=== PATIENT | female | born 1940 | race Caucasian/White ===

== ENCOUNTER → 2016-11-10 | Outpatient (CLI) | payer MEDICARE, BC ==
[~2016-11-10] MED LIST: ACET-62 PO; ASPI-611 PO; ATOR40TA64 PO; CALC-946 PO; DOCU100C19 PO; FAMO20TA8 PO; FURO40TA5 PO; HYDR-4181 PO; HYDR-4246 PO; METO-279 PO; MYCO180T PO; POTA-81 PO; PRED2.5T PO; TACR1CAP PO
--- NOTE | 2016-11-10 16:50 | DI ---
Indication: ITS.REASON: R09.89 CAROTID BRUIT PROCEDURE: US CAROTID DOPP COMPLETE: TECHNIQUE: Grayscale, color and duplex Doppler imaging was performed of the carotid systems bilaterally. Velocities in cm/sec - validated velocity measurements with angiographic measurements, velocity criteria are extrapolated from diameter data as defined by the Society of Radiologists in Ultrasound Consensus Conference Radiology 2003; 229;340-346. RIGHT: PSV ICA 82.1 EDV ICA 9.38 PSV CCA 67.7 EDV CCA 4.01 PSV ECA ICA Diameter reduction 10%-30% (1.0-1.2 PSV<110)% LEFT: PSV ICA 114 EDV ICA 19.3 PSV CCA 76.3 EDV CCA 10.3 PSV ECA 103 ICA Diameter reduction of 20-40% The right vertebral artery is patent with cephalic flow. The left vertebral artery is patent with cephalic flow. Scattered atherosclerotic plaque in the carotid bulbs and proximal to mid ICAs. No focal velocity elevation. IMPRESSION: No hemodynamically significant carotid stenosis. .
== END ==
LOC: IMA 14:56
PROVIDERS: ATTEND Internal Medicine
DX: I65.23 Occlusion and stenosis of bilateral carotid arteries (principal); R09.89 Other specified symptoms and signs involving the circulatory and respiratory systems

== ENCOUNTER 2017-08-23 19:02 | Observation (INO) ==
--- OUTSIDE RECORDS SUMMARY | 2017-08-23 19:07 | External Medical Summary | Referral Summary ---
:1940 Author Organization [facility] Address [address] [place] [address] Care Team Providers Name Role Phone Freedom Tsang Primary Care Physician Encounter [facility] Date(s): 10/08/15 - 10/08/15 [facility] [address] [place] [address]- [place] Discharge Diagnosis: Acute bronchitis, unspecified Discharge Diagnosis: Cough Discharge Diagnosis: Acute exacerbation of chronic obstructive pulmonary disease (COPD) Discharge Disposition: 01-Home or Self Care Attending Physician: Freedom Tsang MD Admitting Physician: Freedom Tsang MD Vital Signs Most recent to oldest [Reference Range]: 1 Peripheral Pulse Rate [60-100 bpm] 58 bpm *LOW* (10/08/15 12:27 PM) Blood Pressure [90-140/60-90 mmHg] 116/62 mmHg (10/08/15 12:27 PM) Problem List Condition Effective Dates Status Health Status Informant Acute pain(Confirmed) Active Allergies(Confirmed) Active At risk of pressure sore(Confirmed) Active Back pain(Confirmed) Active patient CKD (chronic kidney disease), stage Active IV(Confirmed) Dermatochalasis(Confirmed) Active Excess skin of eyelid Active (finding)(Confirmed) Hay fever(Confirmed) Active Hearing loss(Confirmed) Active Hypertension(Confirmed) Active Kidney disease/stones(Confirmed)1 Active Knowledge deficit(Confirmed)2 Active Obesity(Confirmed) Active patient Osteoarthritis(Confirmed) Active 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) Polycystic kidney disease(Confirmed) Active Renal transplant recipient(Confirmed) Active Seizures(Confirmed)3 Active Sun exposure, moderate(Confirmed)4 Active 1end stage, on dialysis 3x week with left arm boegaxe1Nslffme added automatically by system based on initiation of Knowledge Deficit Plan of [id number], demerol also could be the sxzcb7l few serious sunburns Allergies, Adverse Reactions, Alerts Substance Reaction Severity Status Demerol HCl Active FLUoxetine HCl Hair loss Medium Active iodine Adverse Reaction Active lip and face burning meperidine Active penicillin Adverse Reaction Active Itching Percocet 11/3250 Active 1Itching Medications Aspirin Low Dose 81 mg, Oral, Daily, 0 Refill(s) Start Date: 04/01/15 Status: Orderedatorvastatin 40 mg oral tablet 40 mg 1 tabs, Oral, Bedtime (once a day), 0 Refill(s) Start Date: 03/12/15 Status: Orderedazithromycin 250 mg oral tablet See Instructions, TAKE 2 TABS PRIOR TO PROCEDURE AND 1 TAB 1 DAY AFTER PROCEDURE., # 3 tabs, 0 Refill(s), Pharmacy: [facility] #[id number], TAKE 2 TABS PRIOR TO PROCEDURE AND 1 TAB 1 DAY AFTER PROCEDURE. Start Date: 04/19/15 Status: Orderedbisacodyl 10 mg rectal suppository 10 mg 1 supp, Rectal, Daily, as needed for constipation, # 10 supp, 0 Refill(s) Start Date: 03/12/15 Status: OrderedcloNIDine 0.2 mg oral tablet 0.2 mg 1 tabs, Oral, TID, # 60 tabs, 0 Refill(s) Start Date: 03/12/15 Status: OrderedCombivent Respimat CFC free 20 mcg-100 mcg/inh inhalation aerosol 1 puffs, Inhalation, QID, # 4 g, 11 Refill(s), Pharmacy: [facility] # [id number] Start Date: 10/08/15 Status: Ordereddocusate sodium 100 mg, Oral, TID, as needed for constipation, 0 Refill(s) Start Date: 03/12/15 Status: Ordereddoxycycline monohydrate 100 mg oral capsule 100 mg 1 caps, Oral, BID, # 20 caps, 0 Refill(s), Pharmacy: [facility] # [id number], 1 caps Oral BID Start Date: 10/08/15 Status: OrderedDuoNeb 0.5 mg-2.5 mg/3 mL inhalation solution 3 mL, Inhalation, TID, USE WITH NEBULIZER., # 270 mL, 3 Refill(s), Pharmacy: [facility] #[id number] Start Date: 03/17/15 Status: OrderedFLUoxetine 10 mg oral tablet 10 mg 1 tabs, Oral, Daily, # 30 tabs, 0 Refill(s), Pharmacy: [facility] # [id number], 1 tabs Oral Daily Start Date: 05/21/15 Status: Orderedgabapentin 300 mg oral capsule 300 mg 1 caps, Oral, BID, # 60 caps, 0 Refill(s) Start Date: 03/12/15 Status: Orderedgabapentin 300 mg oral capsule 300 mg 1 caps, Oral, BID, # 60 caps, 3 Refill(s), Pharmacy: [facility] # [id number], 1 caps Oral BID Start Date: 09/13/15 Status: OrderedhydrALAZINE 25 mg oral tablet 25 mg 1 tabs, Oral, TID, # 90 tabs, 0 Refill(s) Start Date: 03/12/15 Status: OrderedLasix 20 mg oral tablet 40 mg 2 tabs, Oral, BID, # 30 tabs, 0 Refill(s) Start Date: 03/12/15 Status: Orderedmetolazone 2.5 mg oral tablet See Instructions, 1 po three times per week, 0 Refill(s) Start Date: 04/29/15 Status: Orderedmetoprolol succinate 100 mg oral tablet, extended release 100 mg 1 tabs, Oral, Daily, # 30 tabs, 0 Refill(s) Start Date: 03/12/15 Status: Orderedmycophenolic acid 180 mg oral delayed release tablet See Instructions, TAKE FOUR TABLETS BY MOUTH TWICE A DAY, # 120 tabs, eRx: [facility] #[id number],TAKE FOUR TABLETS BY MOUTH TWICE A DAY Start Date: 05/25/15 Status: OrderedNorco 7.5 mg-325 mg oral tablet 1 tabs, Oral, q6hr, as needed for pain, 0 Refill(s) Start Date: 03/12/15 Status: OrderedPepcid 20 mg oral tablet mg tabs, Oral, BID, 0 Refill(s) Start Date: 03/12/15 Status: OrderedpredniSONE 2.5 mg oral tablet mg tabs, Oral, Daily, 0 Refill(s) Start Date: 03/12/15 Status: OrderedpredniSONE 20 mg oral tablet 40 mg 2 tabs, Oral, Daily, # 10 tabs, 0 Refill(s), Pharmacy: [facility] # [id number], 2 tabs Oral Daily Start Date: 10/08/15 Status: OrderedSpiriva 18 mcg inhalation capsule 18 mcg 1 Each, Inhalation, Daily, use two inhalations of one capsule for each dose, # 30 Each, 3 Refill(s), Pharmacy: [facility] #[id number], 1 Each Inhalation Daily,Instr:use two inhalations of one capsule for each dose Start Date: 06/04/15 Status: Orderedtacrolimus 1 mg oral capsule See Instructions, 2 IN THE AM AND 1 PM, 0 Refill(s) Start Date: 03/12/15 Status: OrderedToprol-XL 100 mg oral tablet, extended release See Instructions, TAKE ONE TABLET BY MOUTH DAILY, # 30 tabs, 2 Refill(s), Pharmacy: [facility]#[id number] Start Date: 09/03/15 Status: OrderedVitamin D3 5000 UNITS ONE WEEKLY ON SUNDAY, 0 Refill(s) Start Date: 03/12/15 Status: Ordered Results No data available for this section Immunizations Vaccine Date Refusal Reason influenza virus vaccine, inactivated1 05/12/14 influenza virus vaccine, live 05/08/13 pneumococcal 13-valent conjugate vaccine 08/18/15 pneumococcal 13-valent conjugate vaccine 08/18/15 tetanus-diphth toxoids (Td) adult/adol 09/25/94 1Location History: See scanned document Procedures Procedure Date Related Diagnosis Body Site Fusion Spine Lumbar Lateral Posterior Interbody1 01/21/15 Kidney transplant 05/16/11 Nephrectomy2 05/16/11 Colonoscopy with diverticulosis3 10/28/09 Esophagogastroduodenoscopy with 10/28/09 biopies/polypectomies showing duodenal polyps/duodenitis4 Fistulafor dialysis5 2007 Hip Replacement R 2002 Biopsy of breast benign 1979 Salivary gland removed 1979 Adenoidectomy Carpal tunnel Carpal tunnel surgery Bilateral Hip replacement Procedure - [facility] - Total abdominal hysterectomy and bilateral salpingo-oophorectomy Tonsillectomy Tonsillectomy 1auto-populated from documented surgical [id number] kidney [id number] repeat colonoscopy in 10 years. 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 FINDINGS: Two views show mild cardiomegaly with no failure. There is flattening of the diaphragm consistent with COPD. No mass or infiltrate is seen. There is no effusion or pneumothorax. IMPRESSION: Mild cardiomegaly with no failure. COPD. The chest is similar to a prior study from 04/01/2015. Dictated on workstation:[id number] Signature Line Final Dictated by: Stef Adams MD Dictated DT/TM: 10/08/2015 1:08 pm Signed by: Stef Adams MD Signed (Electronic Signature): 10/08/2015 1:23 pm Technologist: Naa Carpenter IMAGE This document has an image [1] 1.Acute bronchitis, unspecified Certainly there is a significant effect and I am concerned she has a secondary bacterial infection. 2.Acute exacerbation of chronic obstructive pulmonary disease (COPD) I do think there significant bronchospasm in addition to themucus and infection. Cough Due to the above. When we improve theabove will improve the cough Plan: Doxycycline monohydrate 100 mg twice a day. 20. I will also have her begin czgawjkvka86 mg, 2 daily5. 10. I will also let her use Combivent Respimat inhaler, 1 puff 4 times a day regular ly until she's better. If she has other problems, she may have to come the emergency room. I will have her returnif other problems occur with her next scheduled appointment. Orders: doxycycline, 100 mg 1 caps, Oral, BID, # 20 caps, 0 Refill(s), Pharmacy: [facility] #[id number], 1 caps Oral BID ipratropium-albuterol, 1 puffs, Inhalation, QID, # 4 g, 11 Refill(s), Pharmacy: [facility] #[id number] predniSONE, 40 mg 2 tabs, Oral, Daily, # 10 tabs, 0 Refill(s), Pharmacy: [facility] #[id number], 2 tabs Oral Daily
--- OUTSIDE RECORDS SUMMARY | 2017-08-23 19:07 | External Medical Summary | Referral Summary ---
:1940 Author Organization [facility] Address [address] [place] [address] Care Team Providers Name Role Phone Freedom Tsang Primary Care Physician Encounter [facility] [id number] Date(s): 02/28/16 - 02/28/16 [facility] [address] [place] [address]- [place] Discharge Diagnosis: Abnormality of nail tissue Discharge Diagnosis: Senile purpura Discharge Diagnosis: Epidermal cyst Discharge Diagnosis: History of renal transplant Discharge Disposition: 01-Home or Self Care Attending Physician: Marquis Delacruz MD Admitting Physician: Marqusi Delacruz MD Vital Signs No data available for this section Problem List Condition Effective Dates Status Health [...] on dialysis 3x week with left arm [id number] added automatically by system based on initiation of Knowledge Deficit Plan of Yjfv6qqnuxicuzuj, demerol also could be the bzaya7v few serious sunburns Allergies, Adverse Reactions, Alerts [...] PROCEDURE., # 3 tabs, 0 Refill(s), Pharmacy: [facility] #[id number], TAKE 2 TABS PRIOR TO PROCEDURE AND 1 TAB 1 DAY AFTER PROCEDURE. Start Date: 04/19/15 Status: OrderedcloNIDine 0.5 tabs, Oral, TID, 0 Refill(s) Start Date: 02/17/16 Status: Orderedcyclobenzaprine 5 mg oral tablet 5 mg 1 tabs, Oral, Bedtime (once a day), # 30 tabs, 0 Refill(s), Pharmacy: [facility] #[id number],1 tabs Oral Bedtime (once a day) Start Date: 10/22/15 Status: Ordereddoxycycline monohydrate 100 mg oral capsule 100 mg 1 caps, Oral, BID, # 20 caps, 0 Refill(s), Pharmacy: [facility] # [id number], 1 caps Oral BID Start Date: 10/08/15 Status: Orderedgabapentin 300 mg oral capsule See Instructions, TAKE ONE CAPSULE BY MOUTH TWICE A DAY, # 60 caps, 3 Refill(s) , eRx: [facility] #[id number], TAKE ONE CAPSULE BY MOUTH TWICE A DAY Start Date: 01/17/16 Status: Orderedgabapentin 300 mg oral capsule 300 mg 1 caps, Oral, BID, # 60 caps, 3 Refill(s), Pharmacy: [facility] # [id number], 1 caps Oral BID Start Date: 09/13/15 Status: OrderedhydrALAZINE 100 mg oral tablet 100 mg 1 tabs, Oral, TID, 0 Refill(s) Start Date: 02/17/16 Status: OrderedIncruse Ellipta 62.5 mcg/inh inhalation powder See Instructions, samples lot [id number] exp 09/2016, 0 Refill(s) Start Date: 12/23/15 Status: OrderedLasix 20 mg oral tablet 40 mg 2 tabs, Oral, BID, # 30 tabs, 0 Refill(s) Start Date: 03/12/15 Status: Orderedmetoprolol succinate 100 mg oral tablet, extended release 100 mg 1 tabs, Oral, Daily, # 30 tabs, 0 Refill(s) Start Date: 03/12/15 Status: Orderedmycophenolic acid 180 mg oral delayed release tablet See Instructions, TAKE FOUR TABLETS BY MOUTH TWICE A DAY, # 120 tabs, eRx: [facility] #[id number],TAKE FOUR TABLETS BY MOUTH TWICE A DAY Start Date: 05/25/15 Status: Orderedoxybutynin 5 mg oral tablet 5 mg 1 tabs, Oral, TID, as needed for urinary discomfort, # 50 tabs, 0 Refill(s) , Pharmacy: [facility] #[id number], 1 tabs Oral TID,PRN:as needed for urinary discomfort Start Date: 02/17/16 Status: OrderedPepcid 20 mg oral tablet mg tabs, Oral, BID, 0 Refill(s) Start Date: 03/12/15 Status: OrderedpredniSONE 2.5 mg oral tablet 2.5 mg 1 tabs, Oral, Daily, # 14 tabs, 0 Refill(s) Start Date: 12/23/15 Status: Orderedtacrolimus 1 mg oral capsule See Instructions, 1 IN THE AM AND 1 PM, 0 Refill(s) Start Date: 03/12/15 Status: OrderedToprol-XL 100 mg oral tablet, extended release See Instructions, TAKE ONE TABLET BY MOUTH DAILY, # 30 tabs, 2 Refill(s), Pharmacy: [facility]#[id number] Start Date: 09/03/15 Status: OrderedVitamin D3 5000 [...] Replacement R 2002 Biopsy of breast benign 1980 Salivary gland removed 1979 Adenoidectomy Carpal tunnel Carpal tunnel surgery Bilateral Hip replacement Procedure - [facility] - Total abdominal hysterectomy and bilateral salpingo-oophorectomy Tonsillectomy Tonsillectomy 1auto-populated from documented surgical [id number] kidney acqbgbtmgt2yrul repeat colonoscopy in 10 years. [id number] anemia, oqtzeb0fnan in 2001 right in 2007 Social History Social History Type Response Smoking Status Former smoker; Type: Cigarettes; Tobacco use per day: 1 Pack; Number of years: 30; Total pack years: 301 1Quit in 2001 Assessment and Plan Extracted from: Title: Office Visit Note Author: Marquis Delacruz MD Date: 02/28/16 Assessment/Plan 1.Senile purpura Sun protection Ordered: Office Visit Level 3 Est 14837 2.Epidermal cyst Reassurance for the lesions on the left scalp and right inguinal area Ordered: Office Visit Level 3 Est 37105 3.Abnormality of nail tissue Discussed options and risks and 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 She'll continue excellent sun protection and at least yearly exams or sooner as needed for any lesions of concern Ordered: Office Visit Level 3 Est 48293
--- OUTSIDE RECORDS SUMMARY | 2017-08-23 19:08 | External Medical Summary | Referral Summary ---
:1940 [facility] Address [address] [place] [address] Care Team Providers Name Role Phone Bc Smith Primary Care Physician Encounter [facility] [id number] Date(s): 05/05/15 - 05/05/15 [facility] [place] [address] [place] [address]- [phone] Discharge Disposition: 01-Home or Self Care Attending Physician: Qasim Saxena MD Referring Physician: Qasim Saxena MD Vital Signs No data available for this section Problem List Condition Effective Dates Status Health Status Informant Acute pain(Confirmed) Active Allergies(Confirmed) Active At risk of pressure sore(Confirmed) Active Back pain(Confirmed) Active patient Dermatochalasis(Confirmed) Active Excess skin of eyelid Active (finding)(Confirmed) Hay fever(Confirmed) Active Hearing loss(Confirmed) Active Hypertension(Confirmed) Active Kidney disease/stones(Confirmed)1 Active Knowledge deficit(Confirmed)2 Active Obesity(Confirmed) Active patient Osteoarthritis(Confirmed) Active Polycystic kidney disease(Confirmed) Active Seizures(Confirmed)3 Active Sun exposure, moderate(Confirmed)4 Active 1end stage, on dialysis 3x week with left arm [id number] added automatically by system based on initiation of Knowledge Deficit Plan of Shok2ryouffsdhki, demerol also could be the qacpj3o few serious sunburns Allergies, Adverse Reactions, Alerts Substance Reaction Severity Status iodine Adverse Reaction Active lip and face [...] PROCEDURE., # 3 tabs, 0 Refill(s), Pharmacy: [facility] #[id number], TAKE 2 TABS PRIOR TO PROCEDURE AND 1 TAB 1 DAY AFTER PROCEDURE. Start Date: 04/19/15 Status: Orderedbisacodyl 10 mg rectal suppository 10 mg 1 supp, Rectal, Daily, as needed for constipation, # 10 supp, 0 Refill(s) Start Date: 03/12/15 Status: OrderedcloNIDine 0.2 mg oral tablet 0.2 mg 1 tabs, Oral, TID, # 60 tabs, 0 Refill(s) Start Date: 03/12/15 Status: Ordereddocusate sodium 100 mg, Oral, TID, as needed for constipation, 0 Refill(s) Start Date: 03/12/15 Status: OrderedDuoNeb 0.5 mg-2.5 mg/3 mL inhalation solution 3 mL, Inhalation, TID, USE WITH NEBULIZER., # 270 mL, 3 Refill(s), Pharmacy: [facility] #[id number] Start Date: 03/17/15 Status: OrderedFLUoxetine 10 mg oral tablet 10 mg 1 tabs, Oral, Daily, # 30 tabs, 0 Refill(s) Start Date: 03/12/15 Status: Orderedgabapentin 300 mg oral capsule 300 mg 1 caps, Oral, BID, # 60 caps, 0 Refill(s) Start Date: 03/12/15 Status: OrderedhydrALAZINE 25 mg oral tablet 25 mg 1 tabs, Oral, TID, # 90 tabs, 0 Refill(s) Start Date: 03/12/15 Status: OrderedLasix 20 mg oral tablet 40 mg 2 tabs, Oral, BID, # 30 tabs, 0 Refill(s) Start Date: 03/12/15 Status: Orderedmetolazone 2.5 mg oral tablet mg tabs, Oral, Daily, 0 Refill(s) Start Date: 04/29/15 Status: Orderedmetoprolol succinate 100 mg oral tablet, extended release 100 mg 1 tabs, Oral, Daily, # 30 tabs, 0 Refill(s) Start Date: 03/12/15 Status: Orderedmycophenolic acid 180 mg oral delayed release tablet See Instructions, 4 tabs mg Oral BID, # 120 tabs, 0 Refill(s), Pharmacy: [facility] #[id number], 4tabs mg Oral BID Start Date: 04/16/15 Status: OrderedNorco 7.5 mg-325 mg oral tablet 1 tabs, Oral, q6hr, as needed for pain, 0 Refill(s) Start Date: 03/12/15 Status: OrderedPepcid 20 mg oral tablet mg tabs, Oral, BID, 0 Refill(s) Start Date: 03/12/15 Status: OrderedpredniSONE 2.5 mg oral tablet mg tabs, Oral, Daily, 0 Refill(s) Start Date: 03/12/15 Status: Orderedtacrolimus 1 mg oral capsule See Instructions, 2 IN THE AM AND 1 PM, 0 Refill(s) Start Date: 03/12/15 Status: OrderedVitamin D3 5000 UNITS ONE WEEKLY ON SUNDAY, 0 Refill(s) Start Date: 03/12/15 Status: Ordered Results No data available for this section Immunizations Vaccine Date Refusal Reason influenza virus vaccine, inactivated1 05/12/14 influenza virus vaccine, live 05/08/13 tetanus-diphth toxoids (Td) adult/adol 09/25/94 1Location History: See scanned document Procedures Procedure Date Related Diagnosis Body Site Fusion Spine Lumbar Lateral Posterior Interbody1 01/21/15 Kidney transplant 05/16/11 Nephrectomy2 05/16/11 Colonoscopy with diverticulosis3 10/28/09 Esophagogastroduodenoscopy with 10/28/09 biopies/polypectomies showing duodenal polyps/duodenitis4 Fistulafor dialysis2007 Hip Replacement R 2002 Biopsy of breast benign 1979 Salivary gland removed 1979 Adenoidectomy Carpal tunnel Carpal tunnel surgery Bilateral Hip replacement Procedure - [facility] - Total abdominal hysterectomy and bilateral salpingo-oophorectomy Tonsillectomy Tonsillectomy 1auto-populated from documented surgical ozku1Dyum kidney umixvuazbj7akbz repeat colonoscopy in 10 years. [id number] anemia, zhcesx1btqm in 2001 right in 2007 Social History Social History Type Response Smoking Status Former smoker; Type: Cigarettes; Tobacco use per day: 1 Pack; Number of years: 30; Total pack years: 301 1Quit in 2001 Assessment and Plan No data available for this section
--- OUTSIDE RECORDS SUMMARY | 2017-08-23 19:08 | External Medical Summary | Referral Summary ---
:1940 Author Organization [facility] Address [address] [place] [address] Care Team Providers Name Role Phone Freedom Tsang Primary Care Physician Encounter [facility] Date(s): 02/17/16 - 02/17/16 [facility] [address] [place] [address]- [place] Discharge Diagnosis: Autosomal dominant polycystic kidney disease Discharge Diagnosis: Renal transplant recipient Discharge Diagnosis: Hypertension Discharge Diagnosis: Chronic GERD Discharge Diagnosis: Urinary urgency Discharge Diagnosis: Hypercholesteremia Discharge Disposition: 01-Home or Self Care Attending Physician: Freedom Tsang MD Admitting Physician: Freedom Tsang MD Vital Signs Most recent to oldest [Reference Range]: 1 Peripheral Pulse Rate [60-100 bpm] 60 bpm (02/17/16 11:11 AM) Blood Pressure [90-140/60-90 mmHg] 162/58 mmHg *HI* (02/17/16 11:11 AM) Problem List Condition Effective Dates Status Health [...] on dialysis 3x week with left arm [id number] added automatically by system based on initiation of Knowledge Deficit Plan of Poye1bcytahmioru, demerol also could be the yrgbj8g few serious sunburns Allergies, Adverse Reactions, Alerts [...] # 3 tabs, 0 Refill(s), Pharmacy: [facility] #[id number], TAKE 2 TABS PRIOR TO PROCEDURE AND 1 TAB 1 DAY AFTER PROCEDURE. Start Date: 04/19/15 Status: OrderedcloNIDine 0.5 tabs, Oral, TID, 0 Refill(s) Start Date: 02/17/16 Status: Orderedcyclobenzaprine 5 mg oral tablet 5 mg 1 tabs, Oral, Bedtime (once a day), # 30 tabs, 0 Refill(s), Pharmacy: [facility] #[id number],1 tabs Oral Bedtime (once a day) Start Date: 10/22/15 Status: Ordereddoxycycline monohydrate 100 mg oral capsule 100 mg 1 caps, Oral, BID, # 20 caps, 0 Refill(s), Pharmacy: [facility] # [id number], 1 caps Oral BID Start Date: 10/08/15 Status: Orderedgabapentin 300 mg oral capsule See Instructions, TAKE ONE CAPSULE BY MOUTH TWICE A DAY, # 60 caps, 3 Refill(s) , eRx: [facility] #[id number], TAKE ONE CAPSULE BY MOUTH TWICE A DAY Start Date: 01/17/16 Status: Orderedgabapentin 300 mg oral capsule 300 mg 1 caps, Oral, BID, # 60 caps, 3 Refill(s), Pharmacy: [facility] # [id number], 1 caps Oral BID Start Date: 09/13/15 Status: OrderedhydrALAZINE 100 mg oral tablet 100 mg 1 tabs, Oral, TID, 0 Refill(s) Start Date: 02/17/16 Status: OrderedIncruse Ellipta 62.5 mcg/inh inhalation powder See Instructions, samples lot [id number] exp 09/2016, 0 Refill(s) Start Date: 12/23/15 [...] A DAY, # 120 tabs, eRx: [facility] #[id number],TAKE FOUR TABLETS BY MOUTH TWICE A DAY Start Date: 05/25/15 Status: Orderedoxybutynin 5 mg oral tablet 5 mg 1 tabs, Oral, TID, as needed for urinary discomfort, # 50 tabs, 0 Refill(s) , Pharmacy: [facility] #[id number], 1 tabs Oral TID,PRN:as needed for urinary [...] # 30 tabs, 2 Refill(s), Pharmacy: [facility]#[id number] Start Date: 09/03/15 Status: OrderedVitamin D3 5000 [...] salpingo-oophorectomy Tonsillectomy Tonsillectomy 1auto-populated from documented surgical [id number] kidney rewnzfkxxo7ewuy repeat colonoscopy in 10 years. [id number] anemia, cqdxmy9nscq in 2001 right in 2007 Social History Social History Type Response Smoking Status Former smoker; Type: Cigarettes; Tobacco use per day: 1 Pack; Number of years: 30; Total pack years: 301 1Quit in 2001 Assessment and Plan Extracted from: Title: Six-month [id number] Author: Freedom Tsang MD Date: 02/17/16 Assessment/Plan 1.Urinary urgency Perhaps more symptomatic. I think she could try Ditropan but I would probably try theimmediate release unlessshe has too many side effects. 2.Chronic GERD She does need more treatment. I think she could certainly increase her Pepcid 3.Autosomal dominant polycystic kidney disease History of such and not seem to cause serious problems. 4.Renal transplant recipient Being followed closely by nephrology. Continue she is doing. 5.Hypertension A little higher at the moment. I do want her to continue to follow at home and I'm not going to change any medication at this time. 6.Hypercholesteremia Chronicand being treated. No other change in therapy. Plan: I will add Ditropanor oxybutynin 5 mg3 times a day when necessary urinary incontinence. 50 of those and see how things go. I discussed he could have some dry mouthand possibly some lightheadedness. Also increase Pepcidto twice a day. Continue all of her other medications. No other testing at this time. I will have her return to see me in 6 months with comprehensive exam. Continue romana cox with her other consultants. If she has other problems, get back with me. Orders: oxybutynin, 5 mg 1 tabs, Oral, TID, as needed for urinary discomfort , # 50 tabs, 0 Refill(s), Pharmacy: [facility] #[id number], 1 tabs Oral TID, PRN:as needed for urinary discomfort Extracted from: Title: Ambulatory Patient Education Author: Freedom Tsang MD Date: 02/16 Family Medicine Food Choices for Gastroesophageal Reflux Disease, Adult When you have gastroesophageal reflux disease (GERD), the foods you eat and your eating habits are very important. Choosing the right foods can help ease your discomfort. WHAT GUIDELINES DO I NEED TO FOLLOW? Choose fruits, vegetables, whole grains, and low-fat dairy products. Choose low-fat meat, fish, and poultry. Limit fats such as oils, salad dressings, butter, nuts, and avocado. Keep a food diary. This helps you identify foods that cause symptoms. Avoid foods that cause symptoms. These may be different for everyone. Eat small meals often instead of 3 large meals a day. Eat your meals slowly, in a place where you are relaxed. Limit fried foods. Cook foods using methods other than frying. Avoid drinking alcohol. Avoid drinking large amounts of liquids with your meals. Avoid bending over or lying down until 23 hours after eating. WHAT FOODS ARE NOT RECOMMENDED? These are some foods and drinks that may make your symptoms worse: Vegetables Tomatoes. Tomato juice. Tomato and spaghetti sauce. [place] peppers. Onion and garlic. Horseradish. Fruits Oranges, grapefruit, and lemon (fruit and juice). Meats High-fat meats, fish, and poultry. This includes hot dogs, ribs, ham, sausage, salami, and pope. Dairy Whole milk and chocolate milk. Sour cream. Cream. Butter. Ice cream. Cream cheese. Drinks Coffee and tea. Bubbly (carbonated) drinks or energy drinks. Condiments Hot sauce. Barbecue sauce. Sweets/Desserts Chocolate and cocoa. Donuts. Peppermint and spearmint. Fats and Oils High-fat foods. This includes [place] fries and potato chips. Other Vinegar. Strong spices. This includes black pepper, white pepper, red pepper, cayenne, villar powder, cloves, vanessa, and chili powder. The items listed above may not be a complete list of foods and drinks to avoid. Contact your dietitian for more information. This information is not intended to replace advice given to you by your health care provider. Make sure you discuss any questions you have with your health care provider. Document Released: 01/14/2013 Document Revised: 08/06/2015 Document Reviewed: 05/20/2014 ExitCare Patient Information 2016 [facility], [facility]. No follow up information was provided.
--- OUTSIDE RECORDS SUMMARY | 2017-08-23 19:08 | External Medical Summary | Referral Summary ---
:1940 Author Organization [facility] Address [address] [place] [address] Care Team Providers Name Role Phone Freedom Tsang Primary Care Physician Encounter [facility] [id number] Date(s): 02/22/15 - 02/22/15 [facility] [address] [place] [address]- [place] Discharge Diagnosis: Wart Discharge Diagnosis: Milia Discharge Diagnosis: Neurogenic pain Discharge Diagnosis: History of renal transplant Discharge Disposition: 01-Home or Self Care Attending Physician: Marquis Delacruz MD Admitting Physician: Marquis Delacruz MD Vital Signs No data available [...] patient Osteoarthritis(Confirmed) Active Polycystic kidney disease(Confirmed) Active 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) Renal transplant recipient(Confirmed) Active Seizures(Confirmed)3 Active Sun exposure, moderate(Confirmed)4 Active 1end stage, on dialysis 3x week with left arm [id number] added automatically by system based on initiation of Knowledge Deficit Plan of Jism3soctnpnftuf, demerol also could be the xfyxp8u few serious sunburns Allergies, Adverse Reactions, Alerts [...] PROCEDURE., # 3 tabs, 0 Refill(s), Pharmacy: [facility] #[id number], TAKE 2 TABS PRIOR TO PROCEDURE AND [...] NEBULIZER., # 270 mL, 3 Refill(s), Pharmacy: [facility] #[id number] Start Date: 03/17/15 Status: OrderedFLUoxetine 10 mg oral tablet 10 mg 1 tabs, Oral, Daily, # 30 tabs, 0 Refill(s), Pharmacy: [facility] # [id number], 1 tabs Oral Daily Start Date: 05/21/15 [...] TWICE A DAY, # 120 tabs, eRx: [facility] #[id number],TAKE FOUR TABLETS BY MOUTH TWICE A DAY Start Date: 05/25/15 Status: OrderedNorco 7.5 mg-325 mg oral tablet 1 tabs, Oral, q6hr, as needed for pain, 0 Refill(s) Start Date: 03/12/15 Status: OrderedPepcid 20 mg oral tablet mg tabs, Oral, BID, 0 Refill(s) Start Date: 03/12/15 Status: OrderedpredniSONE 2.5 mg oral tablet mg tabs, Oral, Daily, 0 Refill(s) Start Date: 03/12/15 Status: OrderedSpiriva 18 mcg inhalation capsule 18 mcg 1 Each, Inhalation, Daily, use two inhalations of one capsule for each dose, # 30 Each, 3 Refill(s), Pharmacy: [facility] #[id number], 1 Each Inhalation Daily,Instr:use two inhalations of one capsule for each dose Start Date: 06/04/15 Status: Orderedtacrolimus 1 mg oral capsule See Instructions, 2 IN THE AM AND 1 PM, 0 Refill(s) Start Date: 03/12/15 Status: OrderedToprol-XL 100 mg oral tablet, extended release See Instructions, TAKE ONE TABLET BY MOUTH DAILY, # 30 tabs, 2 Refill(s), Pharmacy: [facility]#[id number] Start Date: 09/03/15 Status: OrderedVitamin D3 5000 [...] Procedures Procedure Date Related Diagnosis Body Site Destruction (eg, laser surgery, electrosurgery, 02/22/15 cryosurgery, chemosurgery, surgical curettement), of benign lesions other than skin tags or cutaneous vascular proliferative lesions; up to 14 lesions.. Fusion Spine Lumbar Lateral Posterior Interbody1 01/21/15 [...] salpingo-oophorectomy Tonsillectomy Tonsillectomy 1auto-populated from documented surgical nghx3Tdnw kidney picuknjzxb1kutg repeat colonoscopy in 10 years. [id number] anemia, gzbtum0rryw in 2001 right in 2007 Social History Social History Type Response Smoking Status Former smoker; Type: Cigarettes; Tobacco use per day: 1 Pack; Number of years: 30; Total pack years: 301 1Quit in 2001 Assessment and Plan Extracted from: Title: Ambulatory Patient Education Author: Marquis Delacruz MD Date: 02/22/15 Family Medicine Epidermal Cyst An epidermal cyst is sometimes called a sebaceous cyst, epidermal inclusion cyst, or infundibular cyst. These cysts usually contain a substance that looks "pasty" or "cheesy" and may have a bad smell. T his substance is a protein called keratin. Epidermal cysts are usually found on the face, neck, or trunk. They may also occur in the vaginal area or other parts of the genitalia of both men and women. E pidermal cysts are usually small, painless, slow-growing bumps or lumps that move freely under the skin. It is important not to try to pop them. This may cause an infection and lead to tenderness and swelling. CAUSES Epidermal cysts may be caused by a deep penetrating injury to the skin or a plugged hair follicle, often associated with acne. SYMPTOMS Epidermal cysts can become inflamed and cause: Redness. Tenderness. Increased temperature of the skin over the bumps or lumps. Grayish-white, bad smelling material that drains from the bump or lump. DIAGNOSIS Epidermal cysts are easily diagnosed by your caregiver during an exam. Rarely, a tissue sample (biopsy) may be taken to rule out other conditions that may resemble epidermal cysts. TREATMENT Epidermal cysts often get better and disappear on their own. They are rarely ever cancerous. If a cyst becomes infected, it may become inflamed and tender. This may require opening and draining the cyst. Treatment with antibiotics may be necessary. When the infection is gone, the cyst may be removed with minor surgery. Small, inflamed cysts can often be treated with antibiotics or by injecting steroid medicines. Sometimes, epidermal cysts become large and bothersome. If this happens, surgical removal in your caregiver's office may be necessary. HOME CARE INSTRUCTIONS Only take athl-edr-oexqqxz or prescription medicines as directed by your caregiver. Take your antibiotics as directed. Finish them even if you start to feel better. SEEK MEDICAL CARE IF: Your cyst becomes tender, red, or swollen. Your condition is not improving or is getting worse. You have any other questions or concerns. MAKE SURE YOU: Understand these instructions. Will watch your condition. Will get help right away if you are not doing well or get worse. Document Released: 06/16/2005 Document Revised: 10/07/2012 Document Reviewed: 01/22/2012 ExitCare Patient Information 2015 [employer]. This information is not intended to replace advice given to you by your health care provider. Make sure you discuss any questions you have with your health care provider. No follow up information was provided. Extracted from: Title: Office Visit Note Author: Marquis Delacruz MD Date: 02/22/15 Assessment/Plan 1.Wart I froze the wart with liquid nitrogen for 7 seconds Ordered: Destruction, Of Flat Warts, Molluscum Contagiosum, Or Milia; Up To 14 Lesions 77555 Office Visit Level 2 New 29353 2.Milia Reassurance Ordered: Office Visit Level 2 New 47028 3.Neurogenic pain We discussed neurogenic pain and slow healing time for nerves and various medications that are sometimes used to address this. Ordered: Office Visit Level 2 New 49168 4.History of renal transplant She declined skin exam today but she uses good sun protection and will return when it is time for her next yearly exam or sooner for any sites of concern Ordered: Office Visit Level 2 New 65895
--- OUTSIDE RECORDS SUMMARY | 2017-08-23 19:08 | External Medical Summary | Referral Summary ---
:1940 Author Organization [facility] Address [address] [place] [address] Care Team Providers Name Role Phone Freedom Tsang Primary Care Physician Encounter [facility] Date(s): 04/29/15 - 04/29/15 [facility] [address] [place] [address]- [place] Discharge Diagnosis: Chronic CHF Discharge Diagnosis: Dyspnea on exertion Discharge Diagnosis: Lymphedema Discharge Diagnosis: Pulmonary hypertension Discharge Diagnosis: Chronic obstructive lung disease Discharge Diagnosis: Chronic venous insufficiency Discharge Disposition: -Home or Self Care Attending Physician: Qasim Saxena MD Admitting Physician: Qasim Saxena MD Vital Signs Most recent to oldest [Reference Range]: 1 Peripheral Pulse Rate [60-100 bpm] 66 bpm (04/29/15 12:52 PM) Respiratory Rate [14-20 br/min] 18 br/min (04/29/15 12:52 PM) Blood Pressure [90-140/60-90 mmHg] 158/62 mmHg *HI* (04/29/15 12:52 PM) SpO2 95 % (04/29/15 12:52 PM) Problem List Condition Effective Dates Status [...] on dialysis 3x week with left arm [id number] added automatically by system based on initiation of Knowledge Deficit Plan of Tmit9spttsnogrwr, demerol also could be the rkyfd0j few serious sunburns Allergies, Adverse Reactions, Alerts [...] PROCEDURE., # 3 tabs, 0 Refill(s), Pharmacy: [facility] #[id number], TAKE 2 TABS PRIOR TO PROCEDURE AND [...] QID, # 4 g, 11 Refill(s), Pharmacy: [facility] # [id number] Start Date: 10/08/15 Status: Orderedcyclobenzaprine 5 mg oral tablet 5 mg 1 tabs, Oral, Bedtime (once a day), # 30 tabs, 0 Refill(s), Pharmacy: [facility] #[id number],1 tabs Oral Bedtime (once a day) Start Date: 10/22/15 Status: Ordereddocusate sodium 100 mg, Oral, TID, as needed for constipation, 0 Refill(s) Start Date: 03/12/15 Status: Ordereddoxycycline monohydrate 100 mg oral capsule 100 mg 1 caps, Oral, BID, # 20 caps, 0 Refill(s), Pharmacy: [facility] # [id number], 1 caps Oral BID Start Date: 10/08/15 Status: OrderedDuoNeb 0.5 mg-2.5 mg/3 mL inhalation solution 3 mL, Inhalation, TID, USE WITH NEBULIZER., # 270 mL, 3 Refill(s), Pharmacy: [facility] #[id number] Start Date: 03/17/15 Status: OrderedFLUoxetine 10 mg oral tablet 10 mg 1 tabs, Oral, Daily, # 30 tabs, 0 Refill(s), Pharmacy: [facility] # [id number], 1 tabs Oral Daily Start Date: 05/21/15 Status: Orderedgabapentin 300 mg oral capsule 300 mg 1 caps, Oral, BID, # 60 caps, 0 Refill(s) Start Date: 03/12/15 Status: Orderedgabapentin 300 mg oral capsule 300 mg 1 caps, Oral, BID, # 60 caps, 3 Refill(s), Pharmacy: [facility] # [id number], 1 caps Oral BID Start Date: 09/13/15 [...] TWICE A DAY, # 120 tabs, eRx: [facility] #[id number],TAKE FOUR TABLETS BY MOUTH TWICE A DAY [...] Daily, # 10 tabs, 0 Refill(s), Pharmacy: [facility] # [id number], 2 tabs Oral Daily Start Date: 10/08/15 Status: OrderedSpiriva 18 mcg inhalation capsule 18 mcg 1 Each, Inhalation, Daily, use two inhalations of one capsule for each dose, # 30 Each, 3 Refill(s), Pharmacy: [facility] #[id number], 1 Each Inhalation Daily,Instr:use two inhalations of one capsule for each dose Start Date: 06/04/15 Status: Orderedtacrolimus 1 mg oral capsule See Instructions, 2 IN THE AM AND 1 PM, 0 Refill(s) Start Date: 03/12/15 Status: OrderedToprol-XL 100 mg oral tablet, extended release See Instructions, TAKE ONE TABLET BY MOUTH DAILY, # 30 tabs, 2 Refill(s), Pharmacy: [facility]#[id number] Start Date: 09/03/15 Status: OrderedVitamin D3 5000 [...] salpingo-oophorectomy Tonsillectomy Tonsillectomy 1auto-populated from documented surgical qkuc0Cmqg kidney wtxacjxttj3jxpy repeat colonoscopy in 10 years. [id number] anemia, vjdwtl7fnix in 2001 right in 2007 Social History Social History Type Response Smoking Status Former smoker; Type: Cigarettes; Tobacco use per day: 1 Pack; Number of years: 30; Total pack years: 301 1Quit in 2001 Assessment and Plan Extracted from: Title: Office Visit Note Author: Qasim Saxena MD Date: 04/29/15 Assessment/Plan Chronic CHF Not adequately controlled, she continues to be symptomatic with orthopnea, PND and dyspnea on exetion. She is sp renal transplan with CKD, on diuretics, recently titrated up. She has gai christina 6 pounds since last visit. She has venous reflux in her lower extremities some of which could be attributed to fluid overload. I performed point of care thoracic ultrasound today. She has bilateral simple effusions left greater than right, she had prominent B lines suggestive of fluid overload. She had metolazone added to her regimen. I would recommend increasing her lasix to 80mg bid for atleast two weeks in addition to metolazone. Will defer titration to her renal team. Chronic obstructive lung disease I switched her to spiriva handihaler as she did notlike the respimat, I however feel that her predominant problems is fluid overload. Chronic venous insufficiency Discussed with the family the causes of CVI, and that in her would focus first on diuresing her. Dyspnea on exertion Due to above Lymphedema Due to above, she is scheduled to get unna boot wrap in two weeks time, currently with elastic compression stockings. Will send her prescription for higher pressure stockings Pulmonary hypertension Secodnary to a combination of renal failure and left heart failure, diurese for now. No suggestion of thromboembolic disease, no symptoms of sleep apnea. Will obtain overnight oximetry. I have reviewed laboratory results I have reviewed the patientsradiology and imaging results I have reviewed old records I have reviewed the literature I have discussed the plan of care with the patient
--- OUTSIDE RECORDS SUMMARY | 2017-08-23 19:08 | External Medical Summary | Referral Summary ---
:1940 Author Organization [facility] Address [address] [place] [address] Care Team Providers Name Role Phone Freedom Tsang Primary Care Physician Encounter VC Date(s): 06/08/16 - 06/08/16 [facility] [address] [place] [address]- Discharge Diagnosis: Renal transplant recipient Discharge Diagnosis: Hypertension Discharge Diagnosis: Acute CHF Discharge Disposition: -Home or Self Care Attending Physician: Freedom Tsang MD Admitting Physician: Freedom Tsang MD Vital Signs Most recent to oldest [Reference Range]: 1 Peripheral Pulse Rate [60-100 bpm] 68 bpm (06/08/16 12:04 PM) Respiratory Rate [14-20 br/min] 17 br/min (06/08/16 12:04 PM) Blood Pressure [90-140/60-90 mmHg] 190/58 mmHg *HI* (06/08/16 12:04 PM) Problem List Condition Effective Dates Status [...] on dialysis 3x week with left arm azpiluu3Hmejcec added automatically by system based on initiation of Knowledge Deficit Plan of Fwcz9hrualfbdhrf, demerol also could be the gzrfg5v few serious sunburns Allergies, Adverse Reactions, Alerts [...] PROCEDURE., # 3 tabs, 0 Refill(s), Pharmacy: [facility] #[id number], TAKE 2 TABS PRIOR TO PROCEDURE AND 1 TAB 1 DAY AFTER PROCEDURE. Start Date: 04/19/15 Status: OrderedhydrALAZINE 100 mg oral tablet 100 mg 1 tabs, Oral, TID, 0 Refill(s) Start Date: 02/17/16 Status: OrderedLasix 20 mg oral tablet 40 [...] TWICE A DAY, # 120 tabs, eRx: [facility] #[id number],TAKE FOUR TABLETS BY MOUTH TWICE A DAY Start Date: 05/25/15 Status: Orderedoxybutynin 5 mg oral tablet 5 mg 1 tabs, Oral, TID, as needed for urinary discomfort, # 50 tabs, 0 Refill(s) , Pharmacy: [facility] #[id number], 1 tabs Oral TID,PRN:as needed for urinary discomfort Start Date: 02/17/16 Status: OrderedPenlac Nail Lacquer 8% topical solution 1 alicia, Topical, Daily, # 6.6 mL, 5 Refill(s), Pharmacy: [facility] #[id number] Start Date: 03/02/16 Status: OrderedPepcid 20 mg oral tablet 20 mg 1 tabs, Oral, BID, # 60 tabs, 5 Refill(s), Pharmacy: [facility] # [id number], 1 tabs Oral BID Start Date: 03/16/16 Status: OrderedpredniSONE 2.5 mg oral tablet 2.5 mg 1 tabs, Oral, Daily, # 14 tabs, 0 Refill(s) Start Date: 12/23/15 Status: Orderedtacrolimus 1 mg oral capsule See Instructions, 1 IN THE AM AND 1 PM, 0 Refill(s) Start Date: 03/12/15 Status: OrderedVitamin D3 5000 UNITS ONE WEEKLY ON SUNDAY, 0 Refill(s) Start Date: 03/12/15 Status: Ordered Results Coagulation Most recent to oldest [Reference Range]: 1 D-Dimer [0-500 ng{FEU}/mL] 896 ng{FEU}/mL *HI* (06/08/16 1:10 PM) Chemistry Most recent to oldest [Reference Range]: 1 BNP [0-99 pg/mL] 501 pg/mL *HI* (06/08/16 12:45 PM) Sodium Venous [136-144 mmol/L] 139 mmol/L (06/08/16 12:45 PM) Potassium Venous [3.6-5.1 mmol/L] 4.3 mmol/L 1 (06/08/16 12:45 PM) Calcium Ionized Venous [1.19-1.41 mmol/L] 1.22 mmol/L (06/08/16 12:45 PM) Total CO2 Venous [25-29 mmol/L] 29 mmol/L (06/08/16 12:45 PM) Glucose Venous [70-100 mg/dL] 122 mg/dL *HI* (06/08/16 12:45 PM) BUN Venous [4-20] 34 *HI* (06/08/16 12:45 PM) Creatinine Venous [0.4-1.0 mg/dL] 1.2 mg/dL *HI* (06/08/16 12:45 PM) Venous CL [99-109 mmol/L] 99 mmol/L (06/08/16 12:45 PM) 1Result Comment: This test was performed on a whole blood specimen. The presence or absence of hemolysis cannot be assessed. Hemolysis can falsely elevate potassium levels. Normals are for venous specimens only. Immunizations Vaccine Date Refusal Reason influenza virus [...] salpingo-oophorectomy Tonsillectomy Tonsillectomy 1auto-populated from documented surgical iwzi1Zenz kidney aelysgcbsv7mzcy repeat colonoscopy in 10 years. [id number] anemia, mttdwk3lgsi in 2001 right in 2007 Social History Social History Type Response Smoking Status Former smoker; Type: Cigarettes; Tobacco use per day: 1 Pack; Number of years: 30; Total pack years: 301 1Quit in 2001 Assessment and Plan Extracted from: Title: Ambulatory Patient Education Author: Freedom Tsang MD Date: 05/14 Nephrology Chronic Kidney Disease Chronic kidney disease occurs when the kidneys are damaged over a long period. The kidneys are two organs that lie on either side of the spine between the middle of the back and the front of the abdomen. The kidneys: Remove wastes and extra water from the blood. Produce important hormones. These help keep bones strong, regulate blood pressure, and help create red blood cells. Balance the fluids and chemicals in the blood and tissues. A small amount of kidney damage may not cause problems, but a large amount of damage may make it difficult or impossible for the kidneys to work the way they should. If steps are not taken to slow down the kidney damage or stop it from getting worse, the kidneys may stop working permanently. Most of the time, chronic kidney disease does not go away. However , it can often be controlled, and those with the disease can usually live normal lives. CAUSES The most common causes of chronic kidney disease are diabetes and high blood pressure (hypertension). Chronic kidney disease may also be caused by: Diseases that cause the kidneys' filters to become inflamed. Diseases that affect the immune system. Genetic diseases. Medicines that damage the kidneys, such as anti-inflammatory medicines. Poisoning or exposure to toxic substances. A reoccurring kidney or urinary infection. A problem with urine flow. This may be caused by: Cancer. Kidney stones. An enlarged prostate in males. SIGNS AND SYMPTOMS Because the kidney damage in chronic kidney disease occurs slowly, symptoms develop slowly and may not be obvious until the kidney damage becomes severe. A person may have a kidney disease for years without showing any symptoms. Symptoms can include: Swelling (edema) of the legs, ankles, or feet. Tiredness (lethargy). Nausea or vomiting. Confusion. Problems with urination, such as: Decreased urine production. Frequent urination, especially at night. Frequent accidents in children who are potty trained. Muscle twitches and cramps. Shortness of breath. Weakness. Persistent itchiness. Loss of appetite. Metallic taste in the mouth. Trouble sleeping. Slowed development in children. Short stature in children. DIAGNOSIS Chronic kidney disease may be detected and diagnosed by tests, including blood , urine, imaging, or kidney biopsy tests. TREATMENT Most chronic kidney diseases cannot be cured. Treatment usually involves relieving symptoms and preventing or slowing the progression of the disease. Treatment may include: A special diet. You may need to avoid alcohol and foods thatare salty and high in potassium. Medicines. These may: Lower blood pressure. Relieve anemia. Relieve swelling. Protect the bones. HOME CARE INSTRUCTIONS Follow your prescribed diet. Your health care provider may instruct you to limit daily salt (sodium) and protein intake. Take medicines only as directed by your health care provider. Do not take any new medicines (prescription, jvqx-isz-fwuxdgv, or nutritional supplements) unless approved by your health care provid er. Many medicines can worsen your kidney damage or need to have the dose adjusted. Quit smoking if you smoke. Talk to your health care provider about a smoking cessation program. Keep all follow-up visits as directed by your health care provider. Monitor your blood pressure. Start or continue an exercise plan. Get immunizations as directed by your health care provider. Take vitamin and mineral supplements as directed by your health care provider. SEEK IMMEDIATE MEDICAL CARE IF: Your symptoms get worse or you develop new symptoms. You develop symptoms of end-stage kidney disease. These include: Headaches. Abnormally dark or light skin. Numbness in the hands or feet. Easy bruising. Frequent hiccups. Menstruation stops. You have a fever. You have decreased urine production. You havepain or bleeding when urinating. MAKE SURE YOU: Understand these instructions. Will watch your condition. Will get help right away if you are not doing well or get worse. FOR MORE INFORMATION [employer] [employer]: www.aakp.org National Kidney Foundation: www.kidney.org [employer]: www.akfinc.org [employer] [facility]: www.lifeoptions.org and www.kidneyschool.org This information is not intended to replace advice given to you by your health care provider. Make sure you discuss any questions you have with your health care provider. Document Released: 04/24/2009 Document Revised: 08/06/2015 Document Reviewed: 03/14/2013 [employer] Patient Education 2016 [employer] No follow up information was provided. Extracted from: Title: CHF 14803 Author: Freedom Tsang MD Date: 06/08/16 Assessment/Plan 1.Acute CHF I can't explain this exactly, but I am concerned there could be ischemia. She will need further evaluation. Fortunately, this does not appear to beacute pulmonary emboli as cause of her discomfort. 2.Chest pain I can't completely explain this. No PE seems evident. Perhaps it is ischemic in nature. Ordered: CTA Chest 3.Hypertension Chronicand could exacerbate some of her problems. 4.Renal transplant recipient This seems to be holding stable. 5.CKD (chronic kidney disease), stage III Also seems to be stable. Plan: I will have her continue with furosemide 60 mg twice a day for now. I will see her in a couple weeks. I will also need to arrange for 2-D echocardiogram and cardiology evaluation. She may needn oninvasiveischemia testing. Continue her other medications as she is doing now. I did send a message to herregarding this.
--- OUTSIDE RECORDS SUMMARY | 2017-08-23 19:08 | External Medical Summary | Referral Summary ---
:1940 Author Organization [facility] Address [address] [place] [address] Care Team Providers Name Role Phone Bc Smith Primary Care Physician Encounter Date(s): 04/29/15 - 04/29/15 [facility] [address] [place] [address]- [place] Discharge Disposition: 01-Home or Self Care Attending [...] on dialysis 3x week with left arm zuiehnr3Azggndm added automatically by system based on initiation of Knowledge Deficit Plan of Utxc3mwchswsbpbd, demerol also could be the ehvys9j few serious sunburns Allergies, Adverse Reactions, Alerts [...] PROCEDURE., # 3 tabs, 0 Refill(s), Pharmacy: [facility] #[id number], TAKE 2 TABS PRIOR TO PROCEDURE AND [...] NEBULIZER., # 270 mL, 3 Refill(s), Pharmacy: [facility] #[id number] Start Date: 03/17/15 Status: OrderedFLUoxetine 10 mg [...] BID, # 120 tabs, 0 Refill(s), Pharmacy: [facility] #[id number], 4tabs mg Oral BID Start Date: 04/16/15 [...] salpingo-oophorectomy Tonsillectomy Tonsillectomy 1auto-populated from documented surgical zcvm6Dkmj kidney ztlottcglj5mfmv repeat colonoscopy in 10 years. [id number] anemia, isvhmc8ghax in 2001 right in 2007 Social History Social History Type Response Smoking Status Former smoker; Type: Cigarettes; Tobacco use per day: 1 Pack; Number of years: 30; Total pack years: 301 1Quit in 2001 Assessment and Plan No data available for this section
--- OUTSIDE RECORDS SUMMARY | 2017-08-23 19:08 | External Medical Summary | Referral Summary ---
:1940 Author Organization [facility] Address [address] [place] [address] Care Team Providers Name Role Phone Bc Smith Primary Care Physician Encounter Date(s): 01/21/15 - 01/25/15 [facility] [address] [place] [address] Final: OTHER KYPHOSCOLIOSIS AND SCOLIOSIS Final: TOXIC ENCEPHALOPATHY Final: KIDNEY REPLACED BY TRANSPLANT Final: Other forms of epilepsy and recurrent seizures, without mention of intractable epilepsy Final: Spinal Stenosis of Lumbar Region without Neurogenic Claudication Final: DEGENERATION OF LUMBAR OR LUMBOSACRAL INTERVERTEBRAL DISC Final: UNSPECIFIED ESSENTIAL HYPERTENSION Final: ESOPHAGEAL REFLUX Final: OTHER AND UNSPECIFIED HYPERLIPIDEMIA Discharge Disposition: 01-Home or Self Care Attending Physician: Cody Esteves MD Admitting Physician: Cody Esteves MD Vital Signs Most recent to oldest [Reference Range]: 1 Temperature Oral [35.8-37.3 degC] 36.7 degC (01/25/15 12:00 PM) Temperature Skin [36-37 degC] 36.3 degC (01/21/15 12:47 PM) Temperature Temporal Artery [36.3-37.8 degC] 37.1 degC (01/22/15 11:38 PM) Peripheral Pulse Rate [60-100 bpm] 68 bpm (01/25/15 12:00 PM) Heart Rate Monitored [60-100 bpm] 84 bpm (01/21/15 6:30 PM) Respiratory Rate [14-20 br/min] 16 br/min (01/25/15 12:00 PM) Blood Pressure [90-140/60-90 mmHg] 153/58 mmHg *HI* (01/25/15 12:00 PM) Mean Arterial Pressure, Cuff 97 mmHg (01/21/15 6:30 PM) Blood Pressure Invasive [90-140/60-90 mmHg] 167/44 mmHg *HI* (01/21/15 1:45 PM) Mean Arterial Pressure, Invasive 82 mmHg (01/21/15 1:45 PM) SpO2 98 % (01/25/15 12:00 PM) Problem List Condition Effective Dates Status [...] on dialysis 3x week with left arm uadpuhn0Fzrvctf added automatically by system based on initiation of Knowledge Deficit Plan of Zbxt7mxxwgyoechl, demerol also could be the dcnnk4q few serious sunburns Allergies, Adverse Reactions, Alerts [...] Pharmacy: [facility] #[id number], TAKE 2 TABS PRIOR TO PROCEDURE AND [...] NEBULIZER., # 270 mL, 3 Refill(s), Pharmacy: [facility] #[id number] Start Date: 03/17/15 Status: OrderedFLUoxetine 10 mg oral tablet 10 mg 1 tabs, Oral, Daily, # 30 tabs, 0 Refill(s), Pharmacy: [facility] # [id number], 1 tabs Oral Daily Start Date: 05/21/15 [...] eRx: [facility] #[id number],TAKE FOUR TABLETS BY MOUTH TWICE A DAY [...] dose, # 30 Each, 3 Refill(s), Pharmacy: [facility] #[id number], 1 Each Inhalation Daily,Instr:use two inhalations of one capsule for each dose Start Date: 06/04/15 Status: Orderedtacrolimus 1 mg oral capsule See Instructions, 2 IN THE AM AND 1 PM, 0 Refill(s) Start Date: 03/12/15 Status: OrderedVitamin D3 5000 UNITS ONE WEEKLY ON SUNDAY, 0 Refill(s) Start Date: 03/12/15 Status: Ordered Results Hematology Most recent to oldest [Reference Range]: 1 WBC [4.8-10.8 10*3/uL] 11.4 10*3/uL *HI* (01/25/15 5:52 AM) RBC [4.00-5.20 10*6/uL] 3.49 10*6/uL *LOW* (01/25/15 5:52 AM) Hgb [12.0-16.0 gm/dL] 10.0 gm/dL *LOW* (01/25/15 5:52 AM) Hct [37.0-47.0 %] 30.9 % *LOW* (01/25/15 5:52 AM) MCV [82.0-99.0 fL] 88.5 fL (01/25/15 5:52 AM) MCH [27.0-32.0 pg] 28.7 pg (01/25/15 5:52 AM) MCHC [32.0-36.0 gm/dL] 32.4 gm/dL (01/25/15 5:52 AM) RDW [11.5-14.5 %] 12.8 % (01/25/15 5:52 AM) Platelet [150-400 10*3/uL] 178 10*3/uL (01/25/15 5:52 AM) MPV [9.4-12.4 fL] 11.1 fL (01/25/15 5:52 AM) Immature Granulocytes [0.0-1.0 %] 0.4 % (01/23/15 7:25 AM) Neutrophils [51-75 %] 95 % *HI* (01/24/15 7:09 AM) Lymphocytes [20-46 %] 3 % *LOW* (01/24/15: AM) Monocytes [4-11 %] 2 % *LOW* (01/24/15:09 AM) Eosinophils [0-4 %] 0 % (01/24/15: AM) Basophils [0-2 %] 0 % (01/24/15: AM) Neutro Absolute [1.90-7.00 10*3] 11.88 10*3 *HI* (01/24/15: AM) Lymph Absolute [0.80-3.30 10*3] 0.38 10*3 *LOW* (01/24/15: AM) Cache Absolute [0.30-1.00 10*3] 0.25 10*3 *LOW* (01/24/15: AM) Eos Absolute [0.00-0.50 10*3] 0.03 10*3 (01/24/15:09 AM) Baso Absolute [0.00-0.20 10*3] 0.02 10*3 (01/24/15:09 AM) Nucleated RBC Automated [0 /100 WBC] 0.0 /100 WBC (01/24/15:09 AM) Differential Reviewed (01/24/15: AM) Chemistry Most recent to oldest [Reference Range]: 1 Sodium Lvl [136-144 mEq/L] 138 mEq/L (01/24/15:09 AM) Potassium Lvl [3.6-5.1 mEq/L] 3.9 mEq/L (01/24/15:09 AM) Chloride [99-109 mEq/L] 105 mEq/L (01/24/15 7:09 AM) CO2 [22-32 mEq/L] 26 mEq/L (01/24/15:09 AM) AGAP [3-20] 7 (01/24/15 7:09 AM) BUN [4-20 mg/dL] 22 mg/dL *HI* (01/24/15 7:09 AM) Glucose Lvl [70-100 mg/dL] 137 mg/dL *HI* (01/24/15 7:09 AM) Creatinine Lvl [0.44-1.03 mg/dL] 0.76 mg/dL (01/24/15 7:09 AM) eGFR [>60] >60 1 (01/24/15 7:09 AM) Calcium Lvl [8.6-10.0 mg/dL] 9.1 mg/dL (01/24/15 7:09 AM) Blood Glucose, Capillary [70-100 mg/dL] 119 mg/dL *HI* (01/25/15 11:47 AM) 1Result Comment: Multiply eGFR results by 1.21 for race. Immunizations Vaccine Date Refusal Reason influenza virus [...] salpingo-oophorectomy Tonsillectomy Tonsillectomy 1auto-populated from documented surgical fmjy7Dzpe kidney jfnylqpjva4ixwy repeat colonoscopy in 10 years. [id number] anemia, lnexyp3qgun in 2001 right in 2007 Social History Social History Type Response Smoking Status Former smoker; Type: Cigarettes; Tobacco use per day: 1 Pack; Number of years: 30; Total pack years: 301 1Quit in 2001 Assessment and Plan No data available for this section
--- OUTSIDE RECORDS SUMMARY | 2017-08-23 19:08 | External Medical Summary | Referral Summary ---
:1940 Author Organization [facility] Address [address] [place] [address] Care Team Providers Name Role Phone Freedom Tsang Primary Care Physician Encounter VC Date(s): 06/26/16 - 06/26/16 [facility] [address] [place] [address]- [place] Discharge Diagnosis: Chest pain Discharge Diagnosis: CKD (chronic kidney disease), stage III Discharge Diagnosis: COPD, moderate Discharge Diagnosis: Autosomal dominant polycystic kidney disease Discharge Diagnosis: Hypertension Discharge Disposition: 01-Home or Self Care Attending Physician: Freedom Tsang MD Admitting Physician: Freedom Tsang MD Vital Signs Most recent to oldest [Reference Range]: 1 Peripheral Pulse Rate [60-100 bpm] 63 bpm (06/26/16 11:23 AM) Blood Pressure [90-140/60-90 mmHg] 161/68 mmHg *HI* (06/26/16 11:23 AM) Problem List Condition Effective Dates Status [...] on dialysis 3x week with left arm [id number] added automatically by system based on initiation of Knowledge Deficit Plan of Wjfr4sltijyxvvvy, demerol also could be the jxtzm5l few serious sunburns Allergies, Adverse Reactions, Alerts [...] PROCEDURE., # 3 tabs, 0 Refill(s), Pharmacy: [facility] #[id number], TAKE 2 TABS PRIOR TO PROCEDURE AND 1 TAB 1 DAY AFTER PROCEDURE. Start Date: 04/19/15 Status: OrderedCombivent Respimat CFC free 20 mcg-100 mcg/inh inhalation aerosol 1 puffs, Inhalation, QID, # 4 g, 11 Refill(s), Pharmacy: [facility] # [id number] Start Date: 06/26/16 Status: OrderedhydrALAZINE 100 mg oral tablet 100 [...] TWICE A DAY, # 120 tabs, eRx: [facility] #[id number],TAKE FOUR TABLETS BY MOUTH TWICE A DAY Start Date: 05/25/15 Status: Orderedoxybutynin 5 mg oral tablet 5 mg 1 tabs, Oral, TID, as needed for urinary discomfort, # 50 tabs, 0 Refill(s) , Pharmacy: [facility] #[id number], 1 tabs Oral TID,PRN:as needed for urinary discomfort Start Date: 02/17/16 Status: OrderedPenlac Nail Lacquer 8% topical solution 1 alicia, Topical, Daily, # 6.6 mL, 5 Refill(s), Pharmacy: [facility] #[id number] Start Date: 03/02/16 Status: OrderedPepcid 20 mg oral tablet 20 mg 1 tabs, Oral, BID, # 60 tabs, 5 Refill(s), Pharmacy: [facility] # [id number], 1 tabs Oral BID Start Date: 03/16/16 [...] salpingo-oophorectomy Tonsillectomy Tonsillectomy 1auto-populated from documented surgical vctw5Xqcu kidney pvkcpfyitb9cjsa repeat colonoscopy in 10 years. [id number] anemia, yvxpcd5pdep in 2001 right in 2007 Social History Social History Type Response Smoking Status Former smoker; Type: Cigarettes; Tobacco use per day: 1 Pack; Number of years: 30; Total pack years: 301 1Quit in 2001 Assessment and Plan Extracted from: Title: Chest pain [id number] Author: Freedom Tsang MD Date: 06/26/16 Assessment/Plan i did review her most recent chest x-ray,V/Q lung scan. These were all only slightly abnormal. 1.Chest pain I think this may be musculoskeletal.I don't see gross CHF. certainly ischemia is a consideration. However, I doubt IN. 2.COPD, moderate this may be a significant issue as it's not being treated at the moment. however, her exam is fairly good. 3.Autosomal dominant polycystic kidney disease being followed by nephrology. 4.Hypertension this may not be adequately controlled. She may need moremedication. 5.CKD (chronic kidney disease), stage III associated with the above. plan: continue with her same medications including her dose of furosemide. I will have her see John for cardiology and pulm. I will see her back in 2 more weeks to see how she is doing. I will also have her start Combivent Respimat 1 puff qid regularly.
--- OUTSIDE RECORDS SUMMARY | 2017-08-23 19:08 | External Medical Summary | Referral Summary ---
:1940 Author Organization [facility] Address [address] [place] [address] Care Team Providers Name Role Phone Freedom Tsang Primary Care Physician Encounter VC Date(s): 04/01/15 - 04/01/15 [facility] [address] [place] [address]- [place] Discharge Diagnosis: Chronic obstructive lung disease Discharge Diagnosis: Shortness of breath Discharge Diagnosis: Lymph edema Discharge Diagnosis: Abnormal PFT Discharge Diagnosis: Chronic CHF Discharge Disposition: 01-Home or Self Care Attending Physician: Qasim Saxena MD Admitting Physician: Qasim Saxena MD Referring Physician: Sybil Reyes MD Vital Signs Most recent to oldest [Reference Range]: 1 Peripheral Pulse Rate [60-100 bpm] 72 bpm (04/01/15 1:00 PM) Respiratory Rate [14-20 br/min] 16 br/min (04/01/15 1:00 PM) Blood Pressure [90-140/60-90 mmHg] 158/60 mmHg *HI* (04/01/15 1:00 PM) SpO2 95 % (04/01/15 1:00 PM) Problem List Condition Effective Dates Status [...] on dialysis 3x week with left arm [id number] added automatically by system based on initiation of Knowledge Deficit Plan of [id number], demerol also could be the qnsla9v few serious sunburns Allergies, Adverse Reactions, Alerts [...] PROCEDURE., # 3 tabs, 0 Refill(s), Pharmacy: [facility] #[id number], TAKE 2 TABS PRIOR TO PROCEDURE AND [...] QID, # 4 g, 11 Refill(s), Pharmacy: [facility] # [id number] Start Date: 10/08/15 Status: Ordereddocusate sodium 100 mg, Oral, TID, as needed for constipation, 0 Refill(s) Start Date: 03/12/15 Status: Ordereddoxycycline monohydrate 100 mg oral capsule 100 mg 1 caps, Oral, BID, # 20 caps, 0 Refill(s), Pharmacy: [facility] # [id number], 1 caps Oral BID Start Date: 10/08/15 Status: OrderedDuoNeb 0.5 mg-2.5 mg/3 mL inhalation solution 3 mL, Inhalation, TID, USE WITH NEBULIZER., # 270 mL, 3 Refill(s), Pharmacy: [facility] #[id number] Start Date: 03/17/15 Status: OrderedFLUoxetine 10 mg oral tablet 10 mg 1 tabs, Oral, Daily, # 30 tabs, 0 Refill(s), Pharmacy: [facility] # [id number], 1 tabs Oral Daily Start Date: 05/21/15 Status: Orderedgabapentin 300 mg oral capsule 300 mg 1 caps, Oral, BID, # 60 caps, 0 Refill(s) Start Date: 03/12/15 Status: Orderedgabapentin 300 mg oral capsule 300 mg 1 caps, Oral, BID, # 60 caps, 3 Refill(s), Pharmacy: [facility] # [id number], 1 caps Oral BID Start Date: 09/13/15 [...] TWICE A DAY, # 120 tabs, eRx: [facility] #[id number],TAKE FOUR TABLETS BY MOUTH TWICE A DAY [...] Daily, # 10 tabs, 0 Refill(s), Pharmacy: [facility] # [id number], 2 tabs Oral Daily Start Date: 10/08/15 Status: OrderedSpiriva 18 mcg inhalation capsule 18 mcg 1 Each, Inhalation, Daily, use two inhalations of one capsule for each dose, # 30 Each, 3 Refill(s), Pharmacy: [facility] #[id number], 1 Each Inhalation Daily,Instr:use two inhalations of one capsule for each dose Start Date: 06/04/15 Status: Orderedtacrolimus 1 mg oral capsule See Instructions, 2 IN THE AM AND 1 PM, 0 Refill(s) Start Date: 03/12/15 Status: OrderedToprol-XL 100 mg oral tablet, extended release See Instructions, TAKE ONE TABLET BY MOUTH DAILY, # 30 tabs, 2 Refill(s), Pharmacy: [facility]#[id number] Start Date: 09/03/15 Status: OrderedVitamin D3 5000 [...] tunnel surgery Bilateral Hip replacement Procedure - [facility] - Total abdominal hysterectomy and bilateral salpingo-oophorectomy Tonsillectomy Tonsillectomy 1auto-populated from documented surgical [id number] kidney awajcndyav2jkza repeat colonoscopy in 10 years. [id number] anemia, sonunv6axja in 2001 right in 2007 Social History Social History Type Response Smoking Status Former smoker; Type: Cigarettes; Tobacco use per day: 1 Pack; Number of years: 30; Total pack years: 301 1Quit in 2001 Assessment and Plan Extracted from: Title: Ambulatory Patient Education Author: Qasim Saxena MD Date: Allergy Edema Edema is an abnormal buildup of fluids in your bodytissues. Edema is somewhatdependent on gravity to pull the fluid to the lowest place in your body. That makes the condition more common in the legs and thighs (lower extremities). Painless swelling of the feet and ankles is common and becomes more likely as you get older. It is also common in looser tissues, like around your eyes. When the affected area is squeezed, the fluid may move out of that spot and leave a dent for a few moments. This dent is called pitting. CAUSES There are many possible causes of edema. Eating too much salt and being on your feet or sitting for a long time can cause edema in your legs and ankles. Hot weather may make edema worse. Common medical causes of edema include: Heart failure. Liver disease. Kidney disease. Weak blood vessels in your legs. Cancer. An injury. . Some medications. Obesity. SYMPTOMS Edema is usually painless.Your skin may look swollen or shiny. DIAGNOSIS Your health care provider may be able to diagnose edema by asking about your medical history and doing a physical exam. You may need to have tests such as X- rays, an electrocardiogram, or blood tests to check for medical conditions that may cause edema. TREATMENT Edema treatment depends on the cause. If you have heart, liver, or kidney disease, you need the treatment appropriate for these conditions. General treatment may include: Elevation of the affected body part above the level of your heart. Compression of the affected body part. Pressure from elastic bandages or support stockings squeezes the tissues and forces fluid back into the blood vessels. This keeps fluid from entering the tissues. Restriction of fluid and salt intake. Use of a water pill (diuretic). These medications are appropriate only for some types of edema. They pull fluid out of your body and make you urinate more often. This gets rid of fluid and reduces swelling, but diuretics can have side effects. Only use diuretics as directed by your health care provider. HOME CARE INSTRUCTIONS Keep the affected body part above the level of your heart when you are lying down. Do not sit still or stand for prolonged periods. Do not put anything directly under your knees when lying down. Do not wear constricting clothing or garters on your upper legs. Exercise your legs to work the fluid back into your blood vessels. This may help the swelling go down. Wear elastic bandages or support stockings to reduce ankle swelling as directed by your health care provider. Eat a low-salt diet to reduce fluid if your health care provider recommends it. Only take medicines as directed by your health care provider. SEEK MEDICAL CARE IF: Your edema is not responding to treatment. You have heart, liver, or kidney disease and notice symptoms of edema. You have edema in your legs that does not improve after elevating them. You have sudden and unexplained weight gain. SEEK IMMEDIATE MEDICAL CARE IF: You develop shortness of breath or chest pain. You cannot breathe when you lie down. You develop pain, redness, or warmth in the swollen areas. You have heart, liver, or kidney disease and suddenly get edema. You have a fever and your symptoms suddenly get worse. MAKE SURE YOU: Understand these instructions. Will watch your condition. Will get help right away if you are not doing well or get worse. Document Released: 07/16/2006 Document Revised: 07/21/2014 Document Reviewed: 05/08/2014 [facility] Patient Information 2015 [facility]. This information is not intended to replace advice given to you by your health care provider. Make sure you discuss any questions you have with your health care provider. No follow up information was provided. Extracted from: Title: Office Visit Note Author: Qasim Saxena MD Date: 04/02/15 Assessment/Plan 1.Lymph edema She has chronic lower extremity edema thathas become worse over the last 6 months, today in the office her legs were weeping. Differential for marked lower extremity edema inclu de liver disease, right or left heart failure, post thrombotic syndrome, CKD withvolume overloadand venous insufficiency among others. She has had bilaterallower extremity Doppler U/sto evaluate for DVT and these have been negative. She is not on meds that are associated with lower extremity edema, she has a history of heart failure and has been on diuretics for this. She has moderate to sever e COPD and with pulmonary hypertension on echo that could contribute to lower extremity edema. I discussed with her the options for therapy including increasing diuretic dose. Sheis s/prenal transplant and has been told she had been dehydrated before. Will differ further diuresis to her janice gloria transplant doctor.I think she could benefit from more diuresis. She would like to get a specific answer to explain her lower extremity edema. I will obtain lower extremity u/s with venous insufficiency protocol toevaluate for venous insufficiency. In additionI will refer her to wound care for a Unna boot wrap. 2.Chronic obstructive lung disease PFT's is consistent with moderate to severe COPD with marked air trapping. She has an occasional non productivecough and has no wheezing. She will benefit from long acting bronchodilator without steroids- will start on Spiriva. 3.Chronic CHF She has signs of pulmonary congestion on CXR and her lymphedema seems to have worsened. She is currently on 40mg of lasix bid. 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 Abnormal PFT As above Shortness of breath secondary to COPD and heart failure. Treatment as above Venous insufficiency Orders: US LE Venous Duplex Bilateral I have reviewed laboratory results I have reviewed the patientsradiology and imaging results I have reviewed old records I have reviewed the literature I have discussed the plan of care with the patient
--- OUTSIDE RECORDS SUMMARY | 2017-08-23 19:09 | External Medical Summary | Referral Summary ---
:1940 Author Organization [facility] [place] [address] Care Team Providers Name Role Phone Freedom Tsang Primary Care Physician Encounter VC Date(s): 03/12/15 - 03/12/15 [facility] [place] [address]- [place] Discharge Diagnosis: Uncontrolled hypertension Discharge Diagnosis: Chronic kidney disease (CKD) Discharge Diagnosis: Polypharmacy Discharge Diagnosis: Elevated d-dimer Discharge Diagnosis: Confusion Discharge Diagnosis: Dyspnea Discharge Disposition: 01-Home or Self Care Attending Physician: Sybil Reyes MD Admitting Physician: Sybil Reyes MD Vital Signs Most recent to oldest [Reference Range]: 1 Temperature Tympanic [36.6-38.1 degC] 37.3 degC (03/12/15 8:08 AM) Peripheral Pulse Rate [60-100 bpm] 63 bpm (03/12/15 8:08 AM) Blood Pressure [90-140/60-90 mmHg] 148/52 mmHg *HI* (03/12/15 8:08 AM) Problem List Condition Effective Dates Status [...] on dialysis 3x week with left arm [id number] added automatically by system based on initiation of Knowledge Deficit Plan of Cbss4kfknzstcswd, demerol also could be the ostda6w few serious sunburns Allergies, Adverse Reactions, Alerts [...] PROCEDURE., # 3 tabs, 0 Refill(s), Pharmacy: [facility] #[id number], TAKE 2 TABS PRIOR TO PROCEDURE AND [...] NEBULIZER., # 270 mL, 3 Refill(s), Pharmacy: [facility] #[id number] Start Date: 03/17/15 Status: OrderedFLUoxetine 10 mg oral tablet 10 mg 1 tabs, Oral, Daily, # 30 tabs, 0 Refill(s), Pharmacy: [facility] # [id number], 1 tabs Oral Daily Start Date: 05/21/15 Status: Orderedgabapentin 300 mg oral capsule 300 mg 1 caps, Oral, BID, # 60 caps, 0 Refill(s) Start Date: 03/12/15 Status: Orderedgabapentin 300 mg oral capsule 300 mg 1 caps, Oral, BID, # 60 caps, 3 Refill(s), Pharmacy: [facility] # [id number], 1 caps Oral BID Start Date: 09/13/15 [...] TWICE A DAY, # 120 tabs, eRx: [facility] #[id number],TAKE FOUR TABLETS BY MOUTH TWICE A DAY [...] dose, # 30 Each, 3 Refill(s), Pharmacy: [facility] #[id number], 1 Each Inhalation Daily,Instr:use two inhalations of one capsule for each dose Start Date: 06/04/15 Status: Orderedtacrolimus 1 mg oral capsule See Instructions, 2 IN THE AM AND 1 PM, 0 Refill(s) Start Date: 03/12/15 Status: OrderedToprol-XL 100 mg oral tablet, extended release See Instructions, TAKE ONE TABLET BY MOUTH DAILY, # 30 tabs, 2 Refill(s), Pharmacy: [facility]#[id number] Start Date: 09/03/15 Status: OrderedVitamin D3 5000 UNITS ONE WEEKLY ON SUNDAY, 0 Refill(s) Start Date: 03/12/15 Status: Ordered Results Coagulation Most recent to oldest [Reference Range]: 1 D-Dimer [0-590 ng{FEU}/mL] 3060 ng{FEU}/mL *HI* (03/12/15 9:25 AM) Chemistry Most recent to oldest [Reference Range]: 1 BNP [0-99 pg/mL] 590 pg/mL *HI* (03/12/15 9:25 AM) Immunizations Vaccine Date Refusal Reason influenza virus [...] salpingo-oophorectomy Tonsillectomy Tonsillectomy 1auto-populated from documented surgical nmlo0Imye kidney gzlwlptoak3pdns repeat colonoscopy in 10 years. [id number] anemia, dqyvhg1tjma in 2001 right in 2007 Social History Social History Type Response Smoking Status Former smoker; Type: Cigarettes; Tobacco use per day: 1 Pack; Number of years: 30; Total pack years: 301 1Quit in 2001 Assessment and Plan Extracted from: Title: Ambulatory Patient Education Author: Sybil Reyes MD Date: 03/12/15 Family Medicine Polypharmacy Problems Polypharmacy problems can occur when you take more than one medicine. Your caregivers need to know about all the medicines you take. This includes vitamins , herbs, eyedrops, fluz-utj-tadchdr medicines, prescription medicines, and creams. Drug interaction problems can include: Bad reactions or side effects. This can occur when certain drugs are taken together. Reduced benefit from your medicines. This can occur if one drug reduces the ability of another drug to work. Some drug interaction problems can be life-threatening. Your caregivers can coordinate a plan to help you avoid polypharmacy problems. RISK FACTORS Polypharmacy problems are more likely to occur if: You have many caregivers prescribing different medicines for you. This is a common problem for elderly patients. You have a long-term (chronic) medical condition. You have had an organ transplant. You have human immunodeficiency virus (HIV). You are undergoing chemotherapy. You have hepatitis. You have kidney disease or kidney failure. You have significant heart disease or lung disease. You are elderly. You are taking medicines that have a low margin of error. This means there is little difference between the right amount of medicine and too much medicine. Medicines in this category include: Warfarin. Digoxin. Stallings. Theophylline. Monoamine oxidase (MAO) inhibitors. Seizure medicines. Cyclosporine. PREVENTION Choose one caregiver to be in charge of coordinating your medicines. Inform this caregiver about all medicines and supplements you take, even if they are prescribed by another caregiver. Purchase all your medicines through the same pharmacy. The pharmacy keeps track of your medicines and possible drug interactions. They can notify your caregiver of potential problems. Read the information given to you at your pharmacy. Carry a list of all your medicines and their doses with you. This informs your caregivers, emergency department caregivers, and specialists about the medicines you are taking. This is especially important before you start a new medicine. Use a system to keep track of which medicines you are taking and when. Many patients use a pillbox that separates medicines by the day and time they are supposed to be taken. Carry a list of your chronic medical problems with you. Conditions such as kidney problems, liver problems, organ transplants, and chronic viral infections affect the way your body handles medicines. Ask your caregiver or pharmacist if you have any questions about your medicines. SEEK MEDICAL CARE IF: You have any problems that may be caused by your medicines. You have chest pain. You have shortness of breath. You have an irregular heartbeat. You have fainting spells. You have shaking or tremors. You have weakness or tiredness (lethargy). You have a rash or swelling in any part of the body. You have increased bleeding, rectal bleeding, vaginal bleeding, or you bruise easily. You have abdominal pain. You have nausea. You have vomiting. Document Released: 08/23/2005 Document Revised: 10/07/2012 Document Reviewed: 04/03/2012 [facility] Patient Information 2015 [facility]. This information is not intended to replace advice given to you by your health care provider. Make sure you discuss any questions you have with your health care provider. No follow up information was provided. Extracted from: Title: Office Visit Note Author: Sybil Reyes MD Date: 03/12/15 Assessment/Plan Chronic kidney disease (CKD) Confusion Dyspnea Do the PFT Elevated d-dimer VQ was OK Polypharmacy follow up with Dr. Lopez and Dr. Graves Uncontrolled hypertension take the hydralazine as ordered by Dr. Lopez. Follow up with Dr. Graves
--- OUTSIDE RECORDS SUMMARY | 2017-08-23 19:09 | External Medical Summary | Referral Summary ---
:1940 Author Organization Via [facility] Address [address] [place] [address] Care Team Providers Name Role Phone Freedom Tsang Primary Care Physician Encounter VC Date(s): 10/29/15 - 10/29/15 [facility] [address] [place] [address]- [phone] Discharge Diagnosis: Nocturnal hypoxia Discharge Disposition: 01-Home or Self Care Attending Physician: Brooke Lebron MD Admitting Physician: Brooke Lebron MD Referring Physician: Brooke Lebron MD Vital Signs Most recent to oldest [Reference Range]: 1 Blood Pressure [90-140/60-90 mmHg] 112/50 mmHg (10/29/15 9:32 AM) Problem List Condition Effective Dates Status [...] on dialysis 3x week with left arm [id number] added automatically by system based on initiation of Knowledge Deficit Plan of Qrjq3ufyhqhkxnei, demerol also could be the gfvbh9y few serious sunburns Allergies, Adverse Reactions, Alerts [...] 0 Refill(s), Pharmacy: [facility] #[id number], TAKE 2 TABS PRIOR TO PROCEDURE AND [...] QID, # 4 g, 11 Refill(s), Pharmacy: [facility] # [id number] Start Date: 10/08/15 Status: Orderedcyclobenzaprine 5 mg oral tablet 5 mg 1 tabs, Oral, Bedtime (once a day), # 30 tabs, 0 Refill(s), Pharmacy: [facility] #[id number],1 tabs Oral Bedtime (once a day) Start Date: 10/22/15 Status: Ordereddocusate sodium 100 mg, Oral, TID, as needed for constipation, 0 Refill(s) Start Date: 03/12/15 Status: Ordereddoxycycline monohydrate 100 mg oral capsule 100 mg 1 caps, Oral, BID, # 20 caps, 0 Refill(s), Pharmacy: [facility] # [id number], 1 caps Oral BID Start Date: 10/08/15 Status: OrderedDuoNeb 0.5 mg-2.5 mg/3 mL inhalation solution 3 mL, Inhalation, TID, USE WITH NEBULIZER., # 270 mL, 3 Refill(s), Pharmacy: [facility] #[id number] Start Date: 03/17/15 Status: OrderedFLUoxetine 10 mg oral tablet 10 mg 1 tabs, Oral, Daily, # 30 tabs, 0 Refill(s), Pharmacy: [facility] # [id number], 1 tabs Oral Daily Start Date: 05/21/15 Status: Orderedgabapentin 300 mg oral capsule 300 mg 1 caps, Oral, BID, # 60 caps, 0 Refill(s) Start Date: 03/12/15 Status: Orderedgabapentin 300 mg oral capsule 300 mg 1 caps, Oral, BID, # 60 caps, 3 Refill(s), Pharmacy: [facility] # [id number], 1 caps Oral BID Start Date: 09/13/15 [...] TWICE A DAY, # 120 tabs, eRx: [facility] #[id number],TAKE FOUR TABLETS BY MOUTH TWICE A DAY [...] Daily, # 10 tabs, 0 Refill(s), Pharmacy: [facility] # [id number], 2 tabs Oral Daily Start Date: 10/08/15 Status: OrderedSpiriva 18 mcg inhalation capsule 18 mcg 1 Each, Inhalation, Daily, use two inhalations of one capsule for each dose, # 30 Each, 3 Refill(s), Pharmacy: [facility] #[id number], 1 Each Inhalation Daily,Instr:use two inhalations of one capsule for each dose Start Date: 06/04/15 Status: Orderedtacrolimus 1 mg oral capsule See Instructions, 2 IN THE AM AND 1 PM, 0 Refill(s) Start Date: 03/12/15 Status: OrderedToprol-XL 100 mg oral tablet, extended release See Instructions, TAKE ONE TABLET BY MOUTH DAILY, # 30 tabs, 2 Refill(s), Pharmacy: [facility]#[id number] Start Date: 09/03/15 Status: OrderedVitamin D3 5000 [...] tunnel surgery Bilateral Hip replacement Procedure - [facility] - Total abdominal hysterectomy and bilateral salpingo-oophorectomy Tonsillectomy Tonsillectomy 1auto-populated from documented surgical qmsy9Mslw kidney xnhurdpqwl9wzui repeat colonoscopy in 10 years. [id number] anemia, nodhpo1pkst in 2001 right in 2007 Social History Social History Type Response Smoking Status Former smoker; Type: Cigarettes; Tobacco use per day: 1 Pack; Number of years: 30; Total pack years: 301 1Quit in 2001 Assessment and Plan No data available for this section
--- OUTSIDE RECORDS SUMMARY | 2017-08-23 19:09 | External Medical Summary | Referral Summary ---
:1940 Author Organization Via [facility] Address [address] [place] [address] Care Team Providers Name Role Phone Freedom Tsang Primary Care Physician Encounter VC Date(s): 06/08/16 - 06/08/16 [facility] [address] [place] [address] Discharge Disposition: 01-Home or Self Care Attending Physician: Freedom Tsang MD Vital Signs No data available for [...] on dialysis 3x week with left arm [id number] added automatically by system based on initiation of Knowledge Deficit Plan of Rjsr5bvggymlkdov, demerol also could be the nyilw5w few serious sunburns Allergies, Adverse Reactions, Alerts [...] Refill(s), Pharmacy: [facility] #[id number], TAKE 2 TABS PRIOR TO PROCEDURE AND [...] tabs, eRx: [facility] #[id number],TAKE FOUR TABLETS BY MOUTH TWICE A DAY Start Date: 05/25/15 Status: Orderedoxybutynin 5 mg oral tablet 5 mg 1 tabs, Oral, TID, as needed for urinary discomfort, # 50 tabs, 0 Refill(s) , Pharmacy: [facility] #[id number], 1 tabs Oral TID,PRN:as needed for urinary discomfort Start Date: 02/17/16 Status: OrderedPenlac Nail Lacquer 8% topical solution 1 alicia, Topical, Daily, # 6.6 mL, 5 Refill(s), Pharmacy: [facility] #[id number] Start Date: 03/02/16 Status: OrderedPepcid 20 mg oral tablet 20 mg 1 tabs, Oral, BID, # 60 tabs, 5 Refill(s), Pharmacy: [facility] # [id number], 1 tabs Oral BID Start Date: 03/16/16 [...] salpingo-oophorectomy Tonsillectomy Tonsillectomy 1auto-populated from documented surgical jpkz4Asco kidney zjmyaopisu7ndsd repeat colonoscopy in 10 years. [id number] anemia, ijiosh4fkbe in 2001 right in 2007 Social History Social History Type Response Smoking Status Former smoker; Type: Cigarettes; Tobacco use per day: 1 Pack; Number of years: 30; Total pack years: 301 1Quit in 2001 Assessment and Plan No data available for this section
--- OUTSIDE RECORDS SUMMARY | 2017-08-23 19:09 | External Medical Summary | Referral Summary ---
:1940 Author Organization [facility] Address [address] [place] [address] Care Team Providers Name Role Phone Freedom Tsang Primary Care Physician Encounter VC Date(s): 08/18/15 - 08/18/15 [facility] [address] [place] [address] us Discharge Diagnosis: Renal transplant recipient Discharge Diagnosis: Hypertension Discharge Diagnosis: CKD (chronic kidney disease), stage IV Discharge Diagnosis: Autosomal dominant polycystic kidney disease Discharge Diagnosis: Lumbago Discharge Diagnosis: Chronic obstructive pulmonary disease, unspecified Discharge Diagnosis: Other retention of urine Discharge Disposition: 01-Home or Self Care Attending Physician: Freedom Tsang MD Admitting Physician: Freedom Tsang MD Vital Signs Most recent to oldest [Reference Range]: 1 Peripheral Pulse Rate [60-100 bpm] 62 bpm (08/18/15 10:55 AM) Blood Pressure [90-140/60-90 mmHg] 148/52 mmHg *HI* (08/18/15 10:55 AM) Problem List Condition Effective Dates Status [...] on dialysis 3x week with left arm [id number] added automatically by system based on initiation of Knowledge Deficit Plan of Cuke5bnhbkttadwk, demerol also could be the tsvkf1m few serious sunburns Allergies, Adverse Reactions, Alerts Substance Reaction Severity Status FLUoxetine HCl Hair loss Medium Active iodine [...] PROCEDURE., # 3 tabs, 0 Refill(s), Pharmacy: [facility] #[id number], TAKE 2 TABS PRIOR TO PROCEDURE AND [...] NEBULIZER., # 270 mL, 3 Refill(s), Pharmacy: [facility] #[id number] Start Date: 03/17/15 Status: OrderedFLUoxetine 10 mg oral tablet 10 mg 1 tabs, Oral, Daily, # 30 tabs, 0 Refill(s), Pharmacy: [facility] # [id number], 1 tabs Oral Daily Start Date: 05/21/15 [...] TWICE A DAY, # 120 tabs, eRx: [facility] #[id number],TAKE FOUR TABLETS BY MOUTH TWICE A DAY [...] dose, # 30 Each, 3 Refill(s), Pharmacy: [facility] #[id number], 1 Each Inhalation Daily,Instr:use two inhalations of [...] salpingo-oophorectomy Tonsillectomy Tonsillectomy 1auto-populated from documented surgical [id number] kidney otxiyrrbhb0ffzz repeat colonoscopy in 10 years. [id number] anemia, qcvdfj1pfzy in 2001 right in 2007 Social History Social History Type Response Smoking Status Former smoker; Type: Cigarettes; Tobacco use per day: 1 Pack; Number of years: 30; Total pack years: 301 1Quit in 2001 Assessment and Plan Extracted from: Title: New/exam [id number] Author: Freedom Tsang MD Date: 08/18/15 Assessment/Plan 1.CKD (chronic kidney disease), stage IV Being followed closely byher training manager. This maybeexacerbated by her urinary retention. This is being followed closely. Her transplanted kid darren has been functioning relatively well otherwise. 2.Autosomal dominant polycystic kidney disease End-stage renal disease associated with this, but now has renal transplantthat is being followed. The left kidney. Apparently still is present and she would like to have it removed but no one is recommended that. 3.Renal transplant recipient Being treated with immunosuppressants and no new complications. No obvious signs ofrejection. 4.Chronic obstructive pulmonary disease, unspecified Relatively stable and on minimal therapy. No acute exacerbation. 5.Other retention of urine Now with Nixon catheter and will follow with training manager. She also is to see urologist. 6.Lumbago Minimally symptomatic. She does use narcotics occasionally. Hypertension Doing relatively well and I'm not going to adjust any medications. Need for pneumococcal vaccination We'll give Prevnar 13 vaccinations today. Plan: Continue follow with her consultants. I'm not going to change any medications or do any other testing at this time. I will have her return to see jovanna 6 months. If she has other problems, she is to get back with me. I did discuss with her that her consultants were very good aboutinforming me of the plans. If she has other problems, get back with me. Ordered: pneumococcal 13-valent conjugate vaccine, 0.5 mL, IntraMuscular, Once, First Dose: 08/18/15 12:00:00 PILE OPERATOR, Stop Date: 08/18/15 12:00:00 PILE OPERATOR, Form: Injection
--- OUTSIDE RECORDS SUMMARY | 2017-08-23 19:09 | External Medical Summary | Referral Summary ---
:1940 Author Organization [facility] Address [address] [place] [address] [place] [address] Care Team Providers Name Role Phone Bc Smith Leeanna Primary Care Physician Encounter VC MARMOLEJO [id number] Date(s): 06/22/15 - 06/22/15 [facility] [address] [place] [address] Discharge Diagnosis: Hair loss Discharge Disposition: 01-Home or Self Care Attending Physician: Karoline Pickard APRN Admitting Physician: Karoline Pickard APRN Vital Signs Most recent to oldest [Reference Range]: 1 Peripheral Pulse Rate [60-100 bpm] 64 bpm (06/22/15 10:03 AM) Blood Pressure [90-140/60-90 mmHg] 106/52 mmHg (06/22/15 10:03 AM) Problem List Condition Effective Dates Status [...] on dialysis 3x week with left arm [id number] added automatically by system based on initiation of Knowledge Deficit Plan of Hatc0tarwspkvvbc, demerol also could be the ufwoq4w few serious sunburns Allergies, Adverse Reactions, Alerts [...] Refill(s), Pharmacy: [facility] #[id number], TAKE 2 TABS PRIOR TO PROCEDURE AND [...] Refill(s), Pharmacy: [facility] #[id number] Start Date: 03/17/15 Status: OrderedFLUoxetine 10 mg oral tablet 10 mg 1 tabs, Oral, Daily, # 30 tabs, 0 Refill(s), Pharmacy: [facility] # [id number], 1 tabs Oral Daily Start Date: 05/21/15 [...] tabs, eRx: [facility] #[id number],TAKE FOUR TABLETS BY MOUTH TWICE A DAY [...] dose, # 30 Each, 3 Refill(s), Pharmacy: [facility] #[id number], 1 Each Inhalation Daily,Instr:use two inhalations of one capsule for each dose Start Date: 06/04/15 Status: Orderedtacrolimus 1 mg oral capsule See Instructions, 2 IN THE AM AND 1 PM, 0 Refill(s) Start Date: 03/12/15 Status: OrderedVitamin D3 5000 UNITS ONE WEEKLY ON SUNDAY, 0 Refill(s) Start Date: 03/12/15 Status: Ordered Results Chemistry Most recent to oldest [Reference Range]: 1 Iron [50-170 mcg/dL] 31 mcg/dL *LOW* (06/22/15 11:17 AM) TSH with Reflex Free T4 [0.35-4.94] 4.28 (06/22/15 11:17 AM) Immunizations Vaccine Date Refusal Reason influenza virus vaccine, inactivated1 05/12/14 influenza virus vaccine, live 05/08/13 tetanus-diphth toxoids (Td) adult/adol 2/27/95 1Location History: See scanned document Procedures Procedure Date Related Diagnosis Body Site Fusion Spine Lumbar Lateral Posterior Interbody1 01/21/15 Kidney transplant 05/16/11 Nephrectomy2 05/16/11 Colonoscopy with diverticulosis3 10/28/09 Esophagogastroduodenoscopy with 10/28/09 biopies/polypectomies showing duodenal polyps/duodenitis4 Fistulafor dialysis5 2007 Hip Replacement R 2002 Biopsy of breast benign 1979 Salivary gland removed 1979 Adenoidectomy Carpal tunnel Carpal tunnel surgery Bilateral Hip replacement Procedure - [facility] - Total abdominal hysterectomy and bilateral salpingo-oophorectomy Tonsillectomy Tonsillectomy 1auto-populated from documented surgical ysla8Qsdo kidney ihwvmclyro8ybss repeat colonoscopy in 10 years. 4-0-86379kje anemia, ztztvs6mzdm in 2001 right in 2007 Social History Social History Type Response Smoking Status Former smoker; Type: Cigarettes; Tobacco use per day: 1 Pack; Number of years: 30; Total pack years: 301 1Quit in 2001 Assessment and Plan No data available for this section
--- OUTSIDE RECORDS SUMMARY | 2017-08-23 19:09 | External Medical Summary | Referral Summary ---
:1940 Author Organization Via [facility] [place] [facility], [facility] Address [address] [place] [address] Care Team Providers Name Role Phone Freedom Tsang Primary Care Physician Encounter VC Date(s): 05/05/15 - 05/05/15 [facility] [place] [facility], [facility] [address] [place] [address]- [phone] Discharge Disposition: 01-Home or Self Care Attending [...] on dialysis 3x week with left arm febcpph8Htdkbxu added automatically by system based on initiation of Knowledge Deficit Plan of Vvxj5nqnitdshmzv, demerol also could be the fgyov5q few serious sunburns Allergies, Adverse Reactions, Alerts [...] PROCEDURE., # 3 tabs, 0 Refill(s), Pharmacy: [facility] #[id number], TAKE 2 TABS PRIOR TO PROCEDURE AND [...] QID, # 4 g, 11 Refill(s), Pharmacy: [facility] # [id number] Start Date: 10/08/15 Status: Orderedcyclobenzaprine 5 mg oral tablet 5 mg 1 tabs, Oral, Bedtime (once a day), # 30 tabs, 0 Refill(s), Pharmacy: [facility] #[id number],1 tabs Oral Bedtime (once a day) Start Date: 10/22/15 Status: Ordereddocusate sodium 100 mg, Oral, TID, as needed for constipation, 0 Refill(s) Start Date: 03/12/15 Status: Ordereddoxycycline monohydrate 100 mg oral capsule 100 mg 1 caps, Oral, BID, # 20 caps, 0 Refill(s), Pharmacy: [facility] # [id number], 1 caps Oral BID Start Date: 10/08/15 Status: OrderedDuoNeb 0.5 mg-2.5 mg/3 mL inhalation solution 3 mL, Inhalation, TID, USE WITH NEBULIZER., # 270 mL, 3 Refill(s), Pharmacy: [facility] #[id number] Start Date: 03/17/15 Status: OrderedFLUoxetine 10 mg oral tablet 10 mg 1 tabs, Oral, Daily, # 30 tabs, 0 Refill(s), Pharmacy: [facility] # [id number], 1 tabs Oral Daily Start Date: 05/21/15 Status: Orderedgabapentin 300 mg oral capsule 300 mg 1 caps, Oral, BID, # 60 caps, 0 Refill(s) Start Date: 03/12/15 Status: Orderedgabapentin 300 mg oral capsule 300 mg 1 caps, Oral, BID, # 60 caps, 3 Refill(s), Pharmacy: [facility] # [id number], 1 caps Oral BID Start Date: 09/13/15 [...] TWICE A DAY, # 120 tabs, eRx: [facility] #[id number],TAKE FOUR TABLETS BY MOUTH TWICE A DAY [...] Daily, # 10 tabs, 0 Refill(s), Pharmacy: [facility] # [id number], 2 tabs Oral Daily Start Date: 10/08/15 Status: OrderedSpiriva 18 mcg inhalation capsule 18 mcg 1 Each, Inhalation, Daily, use two inhalations of one capsule for each dose, # 30 Each, 3 Refill(s), Pharmacy: [facility] #[id number], 1 Each Inhalation Daily,Instr:use two inhalations of one capsule for each dose Start Date: 06/04/15 Status: Orderedtacrolimus 1 mg oral capsule See Instructions, 2 IN THE AM AND 1 PM, 0 Refill(s) Start Date: 03/12/15 Status: OrderedToprol-XL 100 mg oral tablet, extended release See Instructions, TAKE ONE TABLET BY MOUTH DAILY, # 30 tabs, 2 Refill(s), Pharmacy: [facility]#[id number] Start Date: 09/03/15 Status: OrderedVitamin D3 5000 [...] surgery Bilateral Hip replacement Procedure - [facility] - Total abdominal hysterectomy and bilateral salpingo-oophorectomy Tonsillectomy Tonsillectomy 1auto-populated from documented surgical rizl6Tqpz kidney xqglskefub3vwos repeat colonoscopy in 10 years. 2-9-47753eot anemia, gvudqy6mxlb in 2001 right in 2007 Social History Social History Type Response Smoking Status Former smoker; Type: Cigarettes; Tobacco use per day: 1 Pack; Number of years: 30; Total pack years: 301 1Quit in 2001 Assessment and Plan No data available for this section
--- OUTSIDE RECORDS SUMMARY | 2017-08-23 19:09 | External Medical Summary | Referral Summary ---
:1940 Author Organization Via [facility] Address [address] [place] [address] Care Team Providers Name Role Phone Freedom Tsang Primary Care Physician Encounter VC Date(s): 12/23/15 - 12/23/15 [facility] [address] [place] [address] [place] Discharge Disposition: 01-Home or Self Care Attending Physician: Qasim Saxena MD Admitting Physician: Qasim Saxena MD Vital Signs Most recent to oldest [Reference Range]: 1 Peripheral Pulse Rate [60-100 bpm] 74 bpm (12/23/15 2:12 PM) Respiratory Rate [14-20 br/min] 22 br/min *HI* (12/23/15 2:12 PM) Blood Pressure [90-140/60-90 mmHg] 122/58 mmHg (12/23/15 2:12 PM) SpO2 97 % (12/23/15 2:12 PM) Problem List Condition Effective Dates Status [...] on dialysis 3x week with left arm tjdaqtv5Tvraqsk added automatically by system based on initiation of Knowledge Deficit Plan of Etbu6rulmkjrshhf, demerol also could be the viyrl8y few serious sunburns Allergies, Adverse Reactions, Alerts [...] PROCEDURE., # 3 tabs, 0 Refill(s), Pharmacy: [facility] #[id number], TAKE 2 TABS PRIOR TO PROCEDURE AND 1 TAB 1 DAY AFTER PROCEDURE. Start Date: 04/19/15 Status: OrderedcloNIDine 0.2 mg oral tablet 0.2 mg 1 tabs, Oral, TID, # 60 tabs, 0 Refill(s) Start Date: 03/12/15 Status: Orderedcyclobenzaprine 5 mg oral tablet 5 mg 1 tabs, Oral, Bedtime (once a day), # 30 tabs, 0 Refill(s), Pharmacy: [facility] #[id number],1 tabs Oral Bedtime (once a day) Start Date: 10/22/15 Status: Ordereddoxycycline monohydrate 100 mg oral capsule 100 mg 1 caps, Oral, BID, # 20 caps, 0 Refill(s), Pharmacy: [facility] # [id number], 1 caps Oral BID Start Date: 10/08/15 Status: Orderedgabapentin 300 mg oral capsule 300 mg 1 caps, Oral, BID, # 60 caps, 3 Refill(s), Pharmacy: [facility] # [id number], 1 caps Oral BID Start Date: 09/13/15 Status: OrderedhydrALAZINE 25 mg oral tablet 25 mg 1 tabs, Oral, TID, # 90 tabs, 0 Refill(s) Start Date: 03/12/15 Status: OrderedIncruse Ellipta 62.5 mcg/inh inhalation powder See Instructions, samples lot [id number] exp 09/2016, 0 Refill(s) Start Date: 12/23/15 [...] TWICE A DAY, # 120 tabs, eRx: [facility] #[id number],TAKE FOUR TABLETS BY MOUTH TWICE A DAY Start Date: 05/25/15 Status: OrderedPepcid 20 mg oral tablet mg [...] DAILY, # 30 tabs, 2 Refill(s), Pharmacy: [facility]#[id number] Start Date: 09/03/15 Status: OrderedVitamin D3 5000 [...] salpingo-oophorectomy Tonsillectomy Tonsillectomy 1auto-populated from documented surgical tuly4Jsei kidney bdnczsltrl3xuao repeat colonoscopy in 10 years. 2-5-32986mke anemia, kqeruy3ewos in 2001 right in 2007 Social History Social History Type Response Smoking Status Former smoker; Type: Cigarettes; Tobacco use per day: 1 Pack; Number of years: 30; Total pack years: 301 1Quit in 2001 Assessment and Plan No data available for this section
--- OUTSIDE RECORDS SUMMARY | 2017-08-23 19:10 | External Medical Summary | Referral Summary ---
:1940 Author Organization [facility] Address [address] [place] [address] [place] [address] Care Team Providers Name Role Phone Bc Smith Primary Care Physician Encounter VC FRANCIE [id number] Date(s): 02/01/15 - 02/01/15 [facility] [place] [address]- Discharge Diagnosis: Insomnia Discharge Diagnosis: Lower back pain Discharge Disposition: 01-Home or Self Care Attending Physician: Sybil Reyes MD Admitting Physician: Sybil Reyes MD Vital Signs Most recent to oldest [Reference Range]: 1 Temperature Tympanic [36.6-38.1 degC] 37.3 degC (02/01/15 2:55 PM) Peripheral Pulse Rate [60-100 bpm] 84 bpm (02/01/15 2:55 PM) Blood Pressure [90-140/60-90 mmHg] 158/40 mmHg *HI* (02/01/15 2:55 PM) SpO2 96 % (02/01/15 2:55 PM) Problem List Condition Effective Dates Status [...] on dialysis 3x week with left arm pcgbhxk2Bzwheud added automatically by system based on initiation of Knowledge Deficit Plan of Yasj2widqhvvszjn, demerol also could be the vdrzm5w few serious sunburns Allergies, Adverse Reactions, Alerts [...] PROCEDURE., # 3 tabs, 0 Refill(s), Pharmacy: [facility] #[id number], TAKE 2 TABS PRIOR TO PROCEDURE AND [...] NEBULIZER., # 270 mL, 3 Refill(s), Pharmacy: [facility] #[id number] Start Date: 03/17/15 Status: OrderedFLUoxetine 10 mg oral tablet 10 mg 1 tabs, Oral, Daily, # 30 tabs, 0 Refill(s), Pharmacy: [facility] # [id number], 1 tabs Oral Daily Start Date: 05/21/15 [...] TWICE A DAY, # 120 tabs, eRx: [facility] #[id number],TAKE FOUR TABLETS BY MOUTH TWICE A DAY [...] dose, # 30 Each, 3 Refill(s), Pharmacy: [facility] #[id number], 1 Each Inhalation Daily,Instr:use two inhalations of [...] salpingo-oophorectomy Tonsillectomy Tonsillectomy 1auto-populated from documented surgical nneh9Ojub kidney ntucrnyjke3qmjy repeat colonoscopy in 10 years. 2-2-07020gmj anemia, hpgbkh7nxnr in 2001 right in 2007 Social History Social History Type Response Smoking Status Former smoker; Type: Cigarettes; Tobacco use per day: 1 Pack; Number of years: 30; Total pack years: 301 1Quit in 2001 Assessment and Plan Extracted from: Title: Ambulatory Patient Education Author: Sybil Reyes MD Date: 02/02/15 Family Medicine Insomnia Insomnia is frequent trouble falling and/or staying asleep. Insomnia can be a long-term problem or a short term problem. Both are common. Insomnia can be a short term problem when the wakefulness is rel ated to a certain stress or worry. nursing home insomnia is often related to ongoing stress during waking hours and/or poor sleeping habits. Overtime, sleep deprivation itself can make the problem worse. E very little thing feels more severe because you are overtired and your ability to cope is decreased. CAUSES Stress, anxiety, and depression. Poor sleeping habits. Distractions such as TV in the bedroom. Naps close to bedtime. Engaging in emotionally charged conversations before bed. Technical reading before sleep. Alcohol and other sedatives. They may make the problem worse. They can hurt normal sleep patterns and normal dream activity. Stimulants such as caffeine for several hours prior to bedtime. Pain syndromes and shortness of breath can cause insomnia. Exercise late at night. Changing time zones may cause sleeping problems (jet lag ). It is sometimes helpful to have someone observe your sleeping patterns. They should look for periods of not breathing during the night (sleep apnea ). They should also look to see how long those periods last. If you live alone or observers are uncertain, you can also be observed at a sleep clinic where your sleep patterns will be professionally monitored. Sleep apnea requires a checkup and treatment. Give your caregivers your medical history. Give your caregivers observations your family has made about your sleep. SYMPTOMS Not feeling rested in the morning. Anxiety and restlessness at bedtime. Difficulty falling and staying asleep. TREATMENT Your caregiver may prescribe treatment for an underlying medical disorders. Your caregiver can give advice or help if you are using alcohol or other drugs for self-medication. Treatment of underlyi ng problems will usually eliminate insomnia problems. Medications can be prescribed for short time use. They are generally not recommended for lengthy use. Xqpd-toh-orqlhty sleep medicines are not recommended for lengthy use. They can be habit forming. You can promote easier sleeping by making lifestyle changes such as: Using relaxation techniques that help with breathing and reduce muscle tension. Exercising earlier in the day. Changing your diet and the time of your last meal. No night time snacks. Establish a regular time to go to bed. Counseling can help with stressful problems and worry. Soothing music and white noise may be helpful if there are background noises you cannot remove. Stop tedious detailed work at least one hour before bedtime. HOME CARE INSTRUCTIONS Keep a diary. Inform your caregiver about your progress. This includes any medication side effects. See your caregiver regularly. Take note of: Times when you are asleep. Times when you are awake during the night. The quality of your sleep. How you feel the next day. This information will help your caregiver care for you. Get out of bed if you are still awake after 15 minutes. Read or do some quiet activity. Keep the lights down. Wait until you feel sleepy and go back to bed. Keep regular sleeping and waking hours. Avoid naps. Exercise regularly. Avoid distractions at bedtime. Distractions include watching television or engaging in any intense or detailed activity like attempting to balance the household checkbook. Develop a bedtime ritual. Keep a familiar routine of bathing, brushing your teeth, climbing into bed at the same time each night, listening to soothing music. Routines increase the success of falling to sleep faster. Use relaxation techniques. This can be using breathing and muscle tension release routines. It can also include visualizing peaceful scenes. You can also help control troubling or intruding thought s by keeping your mind occupied with boring or repetitive thoughts like the old concept of counting sheep. You can make it more creative like imagining planting one beautiful flower after another in your backyard garden. During your day, work to eliminate stress. When this is not possible use some of the previous suggestions to help reduce the anxiety that accompanies stressful situations. MAKE SURE YOU: Understand these instructions. Will watch your condition. Will get help right away if you are not doing well or get worse. Document Released: 07/13/2001 Document Revised: 10/07/2012 Document Reviewed: 08/12/2008 [facility] Patient Information 2014 [employer] [facility]. No follow up information was provided. Extracted from: Title: Office Visit Note Author: Sybil Reyes MD Date: 02/02/15 Assessment/Plan Insomnia Lower back pain gabapentin. Follow up with Dr. Esteves
--- OUTSIDE RECORDS SUMMARY | 2017-08-23 19:10 | External Medical Summary | Referral Summary ---
:1940 Author Organization [facility] [address] [place] [address] Care Team Providers Name Role Phone Bc Smith Primary Care Physician Encounter VC FRANCIE [phone] Date(s): 12/28/14 - 12/28/14 [facility] [address] [place] [address] Discharge Diagnosis: Spinal stenosis Discharge Diagnosis: Abdominal pain Discharge Diagnosis: Back pain Discharge Diagnosis: Laboratory test Discharge Diagnosis: Pre-operative exam Discharge Diagnosis: Preop respiratory exam Discharge Diagnosis: Scoliosis Discharge Diagnosis: HTN (hypertension), benign Discharge Diagnosis: Kidney disease Discharge Disposition: 01-Home or Self Care Attending Physician: Sybil Reyes MD Vital Signs Most recent to oldest [Reference Range]: 1 Temperature Tympanic [36.6-38.1 degC] 36.7 degC (12/28/14 10:41 AM) Peripheral Pulse Rate [60-100 bpm] 68 bpm (12/28/14 10:41 AM) Respiratory Rate [14-20 br/min] 16 br/min (12/28/14 10:41 AM) Blood Pressure [90-140/60-90 mmHg] 134/50 mmHg (12/28/14 10:41 AM) Problem List Condition Effective Dates Status [...] on dialysis 3x week with left arm [id number] added automatically by system based on initiation of Knowledge Deficit Plan of Rjem2ixstqltqvyx, demerol also could be the uiyrm6f few serious sunburns Allergies, Adverse Reactions, Alerts [...] Refill(s), Pharmacy: [facility] #[id number], TAKE 2 TABS PRIOR TO PROCEDURE AND [...] Refill(s), Pharmacy: [facility] #[id number] Start Date: 03/17/15 Status: OrderedFLUoxetine 10 mg oral tablet 10 mg 1 tabs, Oral, Daily, # 30 tabs, 0 Refill(s), Pharmacy: [facility] # [id number], 1 tabs Oral Daily Start Date: 05/21/15 [...] tabs, eRx: [facility] #[id number],TAKE FOUR TABLETS BY MOUTH TWICE A DAY [...] Refill(s), Pharmacy: [facility] #[id number], 1 Each Inhalation Daily,Instr:use two inhalations of one capsule for each dose Start Date: 06/04/15 Status: Orderedtacrolimus 1 mg oral capsule See Instructions, 2 IN THE AM AND 1 PM, 0 Refill(s) Start Date: 03/12/15 Status: OrderedVitamin D3 5000 UNITS ONE WEEKLY ON SUNDAY, 0 Refill(s) Start Date: 03/12/15 Status: Ordered Results Hematology Most recent to oldest [Reference Range]: 1 WBC [4.8-10.8 10*3/uL] 7.7 10*3/uL (6/1/15 12:10 PM) RBC [4.00-5.20 10*6/uL] 4.38 10*6/uL (12/28/14 12:10 PM) Hgb [12.0-16.0 gm/dL] 13.0 gm/dL (12/28/14 12:10 PM) Hct [37.0-47.0 %] 39.1 % (12/28/14 12:10 PM) MCV [82.0-99.0 fL] 89.3 fL (12/28/14 12:10 PM) MCH [27.0-32.0 pg] 29.7 pg (12/28/14 12:10 PM) MCHC [32.0-36.0 gm/dL] 33.2 gm/dL (12/28/14 12:10 PM) RDW [11.5-14.5 %] 12.9 % (12/28/14 12:10 PM) Platelet [150-400 10*3/uL] 221 10*3/uL (12/28/14 12:10 PM) MPV [8.8-14.8 fL] 11.2 fL (12/28/14 12:10 PM) Immature Granulocytes [0.0-1.0 %] 0.1 % (12/28/14 12:10 PM) Neutrophils [51-75 %] 79 % *HI* (12/28/14 12:10 PM) Lymphocytes [20-46 %] 10 % *LOW* (12/28/14 12:10 PM) Monocytes [4-11 %] 10 % (12/28/14 12:10 PM) Eosinophils [0-4 %] 1 % (12/28/14 12:10 PM) Basophils [0-2 %] 1 % (12/28/14 12:10 PM) Neutro Absolute [1.90-7.00 10*3] 6.05 10*3 (12/28/14 12:10 PM) Lymph Absolute [0.80-3.30 10*3] 0.74 10*3 *LOW* (12/28/14 12:10 PM) [place] Absolute [0.30-1.00 10*3] 0.73 10*3 (12/28/14 12:10 PM) Eos Absolute [0.00-0.50 10*3] 0.11 10*3 (12/28/14 12:10 PM) Baso Absolute [0.00-0.20 10*3] 0.04 10*3 (12/28/14 12:10 PM) Sed Rate [0-23 mm/hr] 21 mm/hr (12/28/14 12:10 PM) Coagulation Most recent to oldest [Reference Range]: 1 INR [0.8-1.2] 0.9 1 (12/28/14 12:10 PM) PTT [25.0-35.0] 28.5 (12/28/14 12:10 PM) 1Result Comment: Normal (no anticoagulant): 0.8 - 1.2 Units Routine Therapeutic Range: 2.0 - 3.0 Units High Risk Therapeutic Range: 2.5 - 3.5 UnitsChemistry Most recent to oldest [Reference Range]: 1 Sodium Lvl [135-144 mEq/L] 141 mEq/L (12/28/14 12:10 PM) Potassium Lvl [3.5-5.2 mEq/L] 4.2 mEq/L (12/28/14 12:10 PM) Chloride [99-111 mEq/L] 106 mEq/L (12/28/14 12:10 PM) CO2 [22-31 mEq/L] 23 mEq/L (12/28/14 12:10 PM) AGAP [3-20] 12 (12/28/14 12:10 PM) BUN [10-20 mg/dL] 41 mg/dL *HI* (12/28/14 12:10 PM) Glucose Lvl [70-99 mg/dL] 134 mg/dL *HI* (12/28/14 12:10 PM) Creatinine Lvl [0.57-1.11 mg/dL] 1.34 mg/dL *HI* (12/28/14 12:10 PM) eGFR [>60 mL/min] 39 mL/min 1 *ABN* (12/28/14 12:10 PM) Calcium Lvl [8.9-10.5 mg/dL] 10.2 mg/dL (12/28/14 12:10 PM) Albumin Lvl [3.4-4.8 gm/dL] 4.7 gm/dL (12/28/14 12:10 PM) Total Protein [6.2-8.1 gm/dL] 6.7 gm/dL (12/28/14 12:10 PM) 1Result Comment: Multiply eGFR results by 1.21 for race.Urinalysis Most recent to oldest [Reference Range]: 1 UA Color Yellow (12/28/14 12:35 PM) UA Appear Cloudy *ABN* (12/28/14 12:35 PM) UA pH [5.0-8.0] 5.0 (12/28/14 12:35 PM) UA Leuk Est [Negative] Pos 3+ *ABN* (12/28/14 12:35 PM) UA Nitrite [Negative] Positive *ABN* (12/28/14 12:35 PM) UA Protein [Negative] Negative (12/28/14 12:35 PM) UA Glucose [Negative] Negative (12/28/14 12:35 PM) UA Ketones [Negative] Negative (12/28/14 12:35 PM) UA Urobilinogen [<1.0 mg/dL] 1.0 mg/dL (12/28/14 12:35 PM) UA Bili [Negative] Negative (12/28/14 12:35 PM) UA Blood [Negative] Negative (12/28/14 12:35 PM) UA Spec Grav [1.003-1.030] 1.014 (12/28/14 12:35 PM) Type Clean Catch (12/28/14 12:35 PM) UA WBC [0-4] 20-50 *ABN* (12/28/14 12:35 PM) UA RBC [0-4] 0-4 (12/28/14 12:35 PM) UA Bacteria Numerous *ABN* (12/28/14 12:35 PM) UA Hyal Cast [0-3] 1-3 (12/28/14 12:35 PM) Microbiology Reports TEST:Urine Culture STATUS:Auth (Verified) BODY SITE: SOURCE:Urine COLLECTED DATE/TIME:12/28/14 12:35 PMUrine CultureEscherichia coli >100,000 cfu/ml ORGANISM:Escherichia coli Immunizations Vaccine Date Refusal Reason influenza virus [...] salpingo-oophorectomy Tonsillectomy Tonsillectomy 1auto-populated from documented surgical [id number] kidney mhqnmugvre1rkqu repeat colonoscopy in 10 years. [id number] anemia, hrdfgb0ibfu in 2001 right in 2007 Social History Social History Type Response Smoking Status Former smoker; Type: Cigarettes; Tobacco use per day: 1 Pack; Number of years: 30; Total pack years: 301 1Quit in 2001 Assessment and Plan Extracted from: Title: Ambulatory Patient Education Author: Sybil Reyes MD Date: 12/28/14 Emergency Medicine Abdominal Pain, Adult Many things can cause abdominal pain. Usually, abdominal pain is not caused by a disease and will improve without treatment. It can often be observed and treated at home. Your health care provider will do a physical exam and possibly order blood tests and X-rays to help determine the seriousness of your pain. However, in many cases, more time must pass before a clear cause of the pain can be found. Be fore that point, your health care provider may not know if you need more testing or further treatment. HOME CARE INSTRUCTIONS Monitor your abdominal pain for any changes. The following actions may help to alleviate any discomfort you are experiencing: Only take kbps-myl-kpxfxop or prescription medicines as directed by your health care provider. Do not take laxatives unless directed to do so by your health care provider. Try a clear liquid diet (broth, tea, or water) as directed by your health care provider. Slowly move to a bland diet as tolerated. SEEK MEDICAL CARE IF: You have unexplained abdominal pain. You have abdominal pain associated with nausea or diarrhea. You have pain when you urinate or have a bowel movement. You experience abdominal pain that wakes you in the night. You have abdominal pain that is worsened or improved by eating food. You have abdominal pain that is worsened with eating fatty foods. SEEK IMMEDIATE MEDICAL CARE IF: Your pain does not go away within 2 hours. You have a fever. You keep throwing up (vomiting ). Your pain is felt only in portions of the abdomen, such as the right side or the left lower portion of the abdomen. You pass bloody or black tarry stools. MAKE SURE YOU: Understand these instructions. Will watch your condition. Will get help right away if you are not doing well or get worse. Document Released: 04/25/2006 Document Revised: 05/06/2014 Document Reviewed: 03/25/2014 [facility] Patient Information 2014 Retrace. No follow up information was provided. Extracted from: Title: Office Visit Note Author: Sybil Reyes MD Date: 12/28/14 Assessment/Plan Abdominal pain Back pain HTN (hypertension), benign Ordered: Basic Metabolic Panel CBC w/ Differential Kidney disease Ordered: Albumin Level PTT Urinalysis with Culture if Indicated Laboratory test Ordered: Protein Total Pre-operative exam If her cardiologistand electrophysiology technologist areOK with her having this surgery, she is a reasonable risk. I have not seen their assessements yet. If she has an ulcer, that should definitely be addressed first. We'll have her do an EGD and try some omeprazole. Ordered: EKG with Interpretation [id number] Preop respiratory exam Scoliosis Spinal stenosis Ordered: Sedimentation Rate Orders: omeprazole, 20 mg 1 tabs, Oral, Daily, # 30 tabs, 3 Refill(s), Pharmacy: [facility] #[id number], 1 tabs Oral Daily predniSONE, See Instructions, TAKE ONE-HALF TABLET BY MOUTH EVERY DAY, # 90 tabs, 1 Refill(s), Pharmacy: [facility] #[id number], TAKE ONE TABLET BY MOUTH EVERY DAY
--- OUTSIDE RECORDS SUMMARY | 2017-08-23 19:10 | External Medical Summary | Referral Summary ---
:1940 Author Organization [facility] Address [address] [place] [address] Care Team Providers Name Role Phone Freedom Tsang Primary Care Physician Encounter VC Date(s): 04/21/15 - 04/21/15 [facility] [address] [place] [address]- [place] Discharge Disposition: 01-Home or Self Care Attending Physician: Qasim Saxena MD Admitting Physician: Qasim Saxena MD Vital Signs No [...] on dialysis 3x week with left arm [id number] added automatically by system based on initiation of Knowledge Deficit Plan of Zzqv9gruwuvdxbmz, demerol also could be the pkfro4k few serious sunburns Allergies, Adverse Reactions, Alerts [...] Pharmacy: [facility] #[id number], TAKE 2 TABS PRIOR TO PROCEDURE AND [...] QID, # 4 g, 11 Refill(s), Pharmacy: [facility] # [id number] Start Date: 10/08/15 Status: Orderedcyclobenzaprine 5 mg oral tablet 5 mg 1 tabs, Oral, Bedtime (once a day), # 30 tabs, 0 Refill(s), Pharmacy: [facility] #[id number],1 tabs Oral Bedtime (once a day) Start Date: 10/22/15 Status: Ordereddocusate sodium 100 mg, Oral, TID, as needed for constipation, 0 Refill(s) Start Date: 03/12/15 Status: Ordereddoxycycline monohydrate 100 mg oral capsule 100 mg 1 caps, Oral, BID, # 20 caps, 0 Refill(s), Pharmacy: [facility] # [id number], 1 caps Oral BID Start Date: 10/08/15 Status: OrderedDuoNeb 0.5 mg-2.5 mg/3 mL inhalation solution 3 mL, Inhalation, TID, USE WITH NEBULIZER., # 270 mL, 3 Refill(s), Pharmacy: [facility] #[id number] Start Date: 03/17/15 Status: OrderedFLUoxetine 10 mg oral tablet 10 mg 1 tabs, Oral, Daily, # 30 tabs, 0 Refill(s), Pharmacy: [facility] # [id number], 1 tabs Oral Daily Start Date: 05/21/15 Status: Orderedgabapentin 300 mg oral capsule 300 mg 1 caps, Oral, BID, # 60 caps, 0 Refill(s) Start Date: 03/12/15 Status: Orderedgabapentin 300 mg oral capsule 300 mg 1 caps, Oral, BID, # 60 caps, 3 Refill(s), Pharmacy: [facility] # [id number], 1 caps Oral BID Start Date: 09/13/15 [...] eRx: [facility] #[id number],TAKE FOUR TABLETS BY MOUTH TWICE A DAY [...] Daily, # 10 tabs, 0 Refill(s), Pharmacy: [facility] # [id number], 2 tabs Oral Daily Start Date: 10/08/15 Status: OrderedSpiriva 18 mcg inhalation capsule 18 mcg 1 Each, Inhalation, Daily, use two inhalations of one capsule for each dose, # 30 Each, 3 Refill(s), Pharmacy: [facility] #[id number], 1 Each Inhalation Daily,Instr:use two inhalations of one capsule for each dose Start Date: 06/04/15 Status: Orderedtacrolimus 1 mg oral capsule See Instructions, 2 IN THE AM AND 1 PM, 0 Refill(s) Start Date: 03/12/15 Status: OrderedToprol-XL 100 mg oral tablet, extended release See Instructions, TAKE ONE TABLET BY MOUTH DAILY, # 30 tabs, 2 Refill(s), Pharmacy: [facility]#[id number] Start Date: 09/03/15 Status: OrderedVitamin D3 5000 [...] surgery Bilateral Hip replacement Procedure - [facility] - Total abdominal hysterectomy and bilateral salpingo-oophorectomy Tonsillectomy Tonsillectomy 1auto-populated from documented surgical zdbv2Ysth kidney ktpoldicjw1hnxo repeat colonoscopy in 10 years. [id number] anemia, dkinfa6uoxr in 2001 right in 2007 Social History Social History Type Response Smoking Status Former smoker; Type: Cigarettes; Tobacco use per day: 1 Pack; Number of years: 30; Total pack years: 301 1Quit in 2001 Assessment and Plan No data available for this section
--- OUTSIDE RECORDS SUMMARY | 2017-08-23 19:10 | External Medical Summary | Referral Summary ---
:1940 Author Organization [facility] Address [address] [place] [address] Care Team Providers Name Role Phone Bc Smith Primary Care Physician Encounter VC Date(s): 01/01/15 - 01/03/15 [facility] [address] [place] [address] [phone] Final: COMPLICATIONS OF TRANSPLANTED KIDNEY Final: Acute Kidney Failure, Unspecified Final: URINARY TRACT INFECTION, SITE NOT SPECIFIED Final: Other and Unspecified Escherichia Coli [E. Coli] Infection in Conditions Classified Elsewhereand of Unspecified Site Final: UNSPECIFIED ESSENTIAL HYPERTENSION Final: Diabetes mellitus without mention of complication, type II or unspecified type, not stated asuncontrolled Final: OTHER AND UNSPECIFIED HYPERLIPIDEMIA Final: OSTEOARTHROSIS, UNSPECIFIED WHETHER GENERALIZED OR LOCALIZED, INVOLVING UNSPECIFIED SITE Final: UNSPECIFIED VITAMIN D DEFICIENCY Final: Personal History of Tobacco Use Discharge Disposition: 01-Home or Self Care Attending Physician: Narcisa Reeves DO Admitting Physician: Narcisa Reeves DO Vital Signs Most recent to oldest [Reference Range]: 1 Temperature Oral [35.8-37.3 degC] 37 degC (01/03/15 12:00 PM) Temperature Temporal Artery [36.3-37.8 degC] 37.1 degC (01/03/15 8:00 AM) Peripheral Pulse Rate [60-100 bpm] 62 bpm (01/03/15 12:00 PM) Respiratory Rate [14-20 br/min] 16 br/min (01/03/15 12:00 PM) Blood Pressure [90-140/60-90 mmHg] 148/65 mmHg *HI* (01/03/15 12:00 PM) SpO2 97 % (01/03/15 12:00 PM) Problem List Condition Effective Dates [...] on dialysis 3x week with left arm [id number] added automatically by system based on initiation of Knowledge Deficit Plan of Qwbq9yzerqnqwaep, demerol also could be the wvaha0v few serious sunburns Allergies, Adverse Reactions, Alerts [...] PROCEDURE., # 3 tabs, 0 Refill(s), Pharmacy: [facility] #[id number], TAKE 2 TABS PRIOR TO PROCEDURE AND [...] NEBULIZER., # 270 mL, 3 Refill(s), Pharmacy: [facility] #[id number] Start Date: 03/17/15 Status: OrderedFLUoxetine 10 mg oral tablet 10 mg 1 tabs, Oral, Daily, # 30 tabs, 0 Refill(s), Pharmacy: [facility] # [id number], 1 tabs Oral Daily Start Date: 05/21/15 [...] TWICE A DAY, # 120 tabs, eRx: [facility] #[id number],TAKE FOUR TABLETS BY MOUTH TWICE A DAY [...] dose, # 30 Each, 3 Refill(s), Pharmacy: [facility] #[id number], 1 Each Inhalation Daily,Instr:use two inhalations of one capsule for each dose Start Date: 06/04/15 Status: Orderedtacrolimus 1 mg oral capsule See Instructions, 2 IN THE AM AND 1 PM, 0 Refill(s) Start Date: 03/12/15 Status: OrderedVitamin D3 5000 UNITS ONE WEEKLY ON SUNDAY, 0 Refill(s) Start Date: 03/12/15 Status: Ordered Results Hematology Most recent to oldest [Reference Range]: 1 WBC [4.8-10.8 10*3/uL] 7.0 10*3/uL (01/03/15 7:25 AM) RBC [4.00-5.20 10*6/uL] 4.28 10*6/uL (01/03/15 7:25 AM) Hgb [12.0-16.0 gm/dL] 12.7 gm/dL (01/03/15 7:25 AM) Hct [37.0-47.0 %] 37.5 % (01/03/15 7:25 AM) MCV [82.0-99.0 fL] 87.6 fL (01/03/15 7:25 AM) MCH [27.0-32.0 pg] 29.7 pg (01/03/15 7:25 AM) MCHC [32.0-36.0 gm/dL] 33.9 gm/dL (01/03/15 7:25 AM) RDW [11.5-14.5 %] 12.9 % (01/03/15 7:25 AM) Platelet [150-400 10*3/uL] 215 10*3/uL (01/03/15 7:25 AM) MPV [9.4-12.4 fL] 10.1 fL (01/03/15 7:25 AM) Immature Granulocytes [0.0-1.0 %] 0.1 % (01/02/15 7:48 AM) Neutrophils [51-75 %] 77 % *HI* (01/03/15 7:25 AM) Lymphocytes [20-46 %] 12 % *LOW* (01/03/15 7:25 AM) Monocytes [4-11 %] 5 % (01/03/15 7:25 AM) Eosinophils [0-4 %] 5 % *HI* (01/03/15 7:25 AM) Basophils [0-2 %] 1 % (01/03/15 7:25 AM) Neutro Absolute [1.90-7.00 10*3] 5.39 10*3 (01/03/15 7:25 AM) Lymph Absolute [0.80-3.30 10*3] 0.84 10*3 (01/03/15 7:25 AM) [place] Absolute [0.30-1.00 10*3] 0.35 10*3 (01/03/15 7:25 AM) Eos Absolute [0.00-0.50 10*3] 0.35 10*3 (01/03/15 7:25 AM) Baso Absolute [0.00-0.20 10*3] 0.07 10*3 (01/03/15:25 AM) Nucleated RBC Automated [0 /100 WBC] 0.0 /100 WBC (01/03/15:25 AM) Differential Reviewed (01/03/15: AM) Chemistry Most recent to oldest [Reference Range]: 1 Sodium Lvl [136-144 mEq/L] 140 mEq/L (01/03/15:25 AM) Potassium Lvl [3.6-5.1 mEq/L] 3.9 mEq/L (01/03/15:25 AM) Chloride [99-109 mEq/L] 104 mEq/L (01/03/15:25 AM) CO2 [22-32 mEq/L] 27 mEq/L (01/03/15:25 AM) AGAP [3-20] 9 (01/03/15:25 AM) BUN [4-20 mg/dL] 29 mg/dL *HI* (01/03/15 7:25 AM) Glucose Lvl [70-100 mg/dL] 102 mg/dL *HI* (01/03/15:25 AM) Creatinine Lvl [0.44-1.03 mg/dL] 0.93 mg/dL (01/03/15:25 AM) eGFR [>60] 59 1 *ABN* (01/03/15 7:25 AM) Calcium Lvl [8.6-10.0 mg/dL] 9.7 mg/dL (6/7/15 7:25 AM) Albumin Lvl [3.5-4.8 gm/dL] 4.2 gm/dL (01/03/15 7:25 AM) Total Protein [6.1-7.9 gm/dL] 7.0 gm/dL (01/01/15 5:43 PM) Globulin [1.9-4.3 gm/dL] 2.5 gm/dL (01/01/15 5:43 PM) ALT [14-54 U/L] 16 U/L (01/01/15 5:43 PM) AST [15-41 U/L] 21 U/L (01/01/15 5:43 PM) Alk Phos [26-104 U/L] 47 U/L (01/01/15 5:43 PM) Bili Total [0.2-1.2 mg/dL] 0.9 mg/dL 2 (01/01/15 5:43 PM) Magnesium Lvl [1.8-2.5 mg/dL] 1.6 mg/dL *LOW* (01/03/15 7:25 AM) Phosphorus [2.4-4.7 mg/dL] 3.9 mg/dL 3 (01/03/15 7:25 AM) Total CK [38-234 U/L] 40 U/L (01/01/15 5:43 PM) BNP [0-99 pg/mL] 218 pg/mL *HI* (01/03/15 7:25 AM) Blood Glucose, Capillary [70-100 mg/dL] 155 mg/dL *HI* (01/03/15 12:35 PM) T4 [4.8-11.7 mcg/dL] 6.8 mcg/dL (01/01/15 5:43 PM) TSH [0.35-5.50] 1.75 (01/01/15 5:43 PM) T3 Free [1.7-3.7 pg/mL] 3.1 pg/mL (01/01/15 5:43 PM) Hgb A1c [4.1-5.6 %] 6.0 % *HI* (01/01/15 5:43 PM) eAvg Glucose 125.5 mg/dL (01/01/15 5:43 PM) 1Result Comment: Multiply eGFR results by 1.21 for race.2Result Comment: Naproxen, specifically the metabolite O-desmethylnaproxen, may cause spurious elevation in Total Bilirubin levels.3Result Comment: High dosages of liposomal Amphotericin B (AmBisome) therapy or other drug preparations that use a liposomal envelope to facilitate drug delivery may cause falsely elevated results for phosphorus.Therapeutic Drug Monitoring Most recent to oldest [Reference Range]: 1 Tacrolimus (Prograf) Level [5.0-15.0 ng/mL] 6.3 ng/mL 1 (01/02/15 7:48 AM) 1Result Comment: Tacrolimus interpretation: Therapeutic Range: 5-15 Toxic Range: >20 NDT: No Detectable LevelUrinalysis Most recent to oldest [Reference Range]: 1 UA Color Lt Yellow (01/01/15 5:20 PM) UA Appear Clear (01/01/15 5:20 PM) UA pH [5.0-8.0] 5.0 (01/01/15 5:20 PM) UA Leuk Est [Negative] Negative (01/01/15 5:20 PM) UA Nitrite [Negative] Negative (01/01/15 5:20 PM) UA Protein [Negative] Negative (01/01/15 5:20 PM) UA Glucose [Negative] Negative (01/01/15 5:20 PM) UA Ketones [Negative] Negative (01/01/15 5:20 PM) UA Urobilinogen [<1.0] Negative (01/01/15 5:20 PM) UA Bili [Negative] Negative (01/01/15 5:20 PM) UA Blood [Negative] Negative (01/01/15 5:20 PM) UA Spec Grav [1.003-1.030] 1.011 (01/01/15 5:20 PM) Type Clean Catch (01/01/15 5:20 PM) Immunizations Vaccine Date Refusal Reason influenza virus [...] salpingo-oophorectomy Tonsillectomy Tonsillectomy 1auto-populated from documented surgical [id number] kidney fiiwsojppl8xqnd repeat colonoscopy in 10 years. [id number] anemia, abkdrw0ghbx in 2001 right in 2007 Social History Social History Type Response Smoking Status Former smoker; Type: Cigarettes; Tobacco use per day: 1 Pack; Number of years: 30; Total pack years: 301 1Quit in 2001 Assessment and Plan No data available for this section
--- OUTSIDE RECORDS SUMMARY | 2017-08-23 19:10 | External Medical Summary | Referral Summary ---
:1940 Author Organization Via [facility] Address [address] [place] [address] Care Team Providers Name Role Phone Bc Smith Primary Care Physician Encounter Date(s): 01/21/15 - 01/25/15 [facility] [address] [place] [address] [phone] Final: OTHER KYPHOSCOLIOSIS AND SCOLIOSIS Final: TOXIC [...] on dialysis 3x week with left arm [id number] added automatically by system based on initiation of Knowledge Deficit Plan of Khta5oxmowvmqpzq, demerol also could be the uudgh0b few serious sunburns Allergies, Adverse Reactions, Alerts [...] PROCEDURE., # 3 tabs, 0 Refill(s), Pharmacy: [facility] #[id number], TAKE 2 TABS PRIOR TO PROCEDURE AND [...] NEBULIZER., # 270 mL, 3 Refill(s), Pharmacy: [facility] #[id number] Start Date: 03/17/15 Status: OrderedFLUoxetine 10 mg oral tablet 10 mg 1 tabs, Oral, Daily, # 30 tabs, 0 Refill(s), Pharmacy: [facility] # [id number], 1 tabs Oral Daily Start Date: 05/21/15 [...] TWICE A DAY, # 120 tabs, eRx: [facility] #[id number],TAKE FOUR TABLETS BY MOUTH TWICE A DAY [...] dose, # 30 Each, 3 Refill(s), Pharmacy: [facility] #[id number], 1 Each Inhalation Daily,Instr:use two inhalations of [...] [0.80-3.30 10*3] 0.38 10*3 *LOW* (01/24/15: AM) Price Absolute [0.30-1.00 10*3] 0.25 10*3 *LOW* (01/24/15: [...] salpingo-oophorectomy Tonsillectomy Tonsillectomy 1auto-populated from documented surgical brvv7Ycom kidney cwainohioq1vifm repeat colonoscopy in 10 years. [id number] anemia, [id number] in 2001 right in 2007 Social History Social History Type Response Smoking Status Former smoker; Type: Cigarettes; Tobacco use per day: 1 Pack; Number of years: 30; Total pack years: 301 1Quit in 2001 Assessment and Plan No data available for this section
--- OUTSIDE RECORDS SUMMARY | 2017-08-23 19:10 | External Medical Summary | Referral Summary ---
:1940 Author Organization [facility] Address [address] [place] [address] [place] [address] Care Team Providers Name Role Phone Bc Smith Primary Care Physician Encounter VC FRANCIE [id number] Date(s): 01/12/15 - 01/12/15 [facility], [address] [place] [phone] [place] Discharge Diagnosis: Abdominal pain, LUQ Discharge Disposition: 01-Home or Self Care Attending Physician: Cuong Hurt MD Admitting Physician: Cuong Hurt MD Referring Physician: Sybil Reyes MD Vital Signs Most recent to oldest [Reference Range]: 1 Temperature Tympanic [36.6-38.1 degC] 37.0 degC (01/12/15 3:04 PM) Peripheral Pulse Rate [60-100 bpm] 64 bpm (01/12/15 3:04 PM) Respiratory Rate [14-20 br/min] 20 br/min (01/12/15 3:04 PM) Blood Pressure [90-140/60-90 mmHg] 150/58 mmHg *HI* (01/12/15 3:04 PM) Problem List Condition Effective Dates Status [...] on dialysis 3x week with left arm nypxrpu1Xnupfyv added automatically by system based on initiation of Knowledge Deficit Plan of Quyp8dftojxepeva, demerol also could be the viogs7v few serious sunburns Allergies, Adverse Reactions, Alerts [...] PROCEDURE., # 3 tabs, 0 Refill(s), Pharmacy: [facility] #[id number], TAKE 2 TABS PRIOR TO PROCEDURE AND [...] NEBULIZER., # 270 mL, 3 Refill(s), Pharmacy: [facility] #[id number] Start Date: 03/17/15 Status: OrderedFLUoxetine 10 mg oral tablet 10 mg 1 tabs, Oral, Daily, # 30 tabs, 0 Refill(s), Pharmacy: [facility] # [id number], 1 tabs Oral Daily Start Date: 05/21/15 [...] TWICE A DAY, # 120 tabs, eRx: [facility] #[id number],TAKE FOUR TABLETS BY MOUTH TWICE A DAY [...] dose, # 30 Each, 3 Refill(s), Pharmacy: [facility] #[id number], 1 Each Inhalation Daily,Instr:use two inhalations of [...] salpingo-oophorectomy Tonsillectomy Tonsillectomy 1auto-populated from documented surgical mvzj5Hzam kidney twvzoxqquw3ydaz repeat colonoscopy in 10 years. 6-7-56612hrn anemia, vpxlhs1xixh in 2001 right in 2007 Social History Social History Type Response Smoking Status Former smoker; Type: Cigarettes; Tobacco use per day: 1 Pack; Number of years: 30; Total pack years: 301 1Quit in 2001 Assessment and Plan Extracted from: Title: Office Visit Note Author: Cuong Hurt MD Date: 01/12/15 Assessment/Plan Abdominal pain, LUQ Ordered: Office Visit Level 3 New [address]17 Plan: No endoscopic evaluation this time. Continued clinical follow-up/ observation I did review the patient's chart including a prior EGD and colonoscopy report performed by myself from October 28, 2009. Patient was found to have a few benign duodenal polyps but no other abnorm alities were noted upon upper endoscopy. Reviewed recent office note performed by patient's PCP from December 28, 2014. I informed the patient that at this point in timeI donot feel there was any str brooke indication that we needed to proceed with upper endoscopy/ esophagogastroduodenoscopy. I would encourage her to continue to take her Prilosec on a daily basis. If her left upper quadrant and righ t mid abdominal pain should become worse/severe in the future I would recommend that we initially proceed with a CT scan for further evaluation. Hopefully her pain will continue to improve on its own behalf. Patient this time is to follow-up with me on a when necessary basis. She is to return back to her PCP for ongoing medical care.
--- OUTSIDE RECORDS SUMMARY | 2017-08-23 19:10 | External Medical Summary | Referral Summary ---
:1940 Author [facility] Address [address] [place] [address] [place] [address] Care Team Providers Name Role Phone Freedom Tsang Primary Care Physician Encounter VC Date(s): 03/02/15 - 03/02/15 [facility] [place] [phone] [place] Discharge Diagnosis: Lower extremity edema Discharge Diagnosis: Confusion Discharge Diagnosis: SOB (shortness of breath) Discharge Diagnosis: Elevated d-dimer Discharge Disposition: 01-Home or Self Care Attending Physician: Karoline Pickard APRN Admitting Physician: Karoline Pickard APRN Vital Signs Most recent to oldest [Reference Range]: 1 Temperature Tympanic [36.6-38.1 degC] 36.7 degC (03/02/15 11:18 AM) Peripheral Pulse Rate [60-100 bpm] 56 bpm *LOW* (03/02/15 11:18 AM) Blood Pressure [90-140/60-90 mmHg] 170/44 mmHg *HI* (03/02/15 11:18 AM) SpO2 97 % (03/02/15 11:18 AM) Problem List Condition Effective Dates Status [...] on dialysis 3x week with left arm owgsdnt2Uqaopkv added automatically by system based on initiation of Knowledge Deficit Plan of Vhyi0wxgphtvtloj, demerol also could be the zngbv3a few serious sunburns Allergies, Adverse Reactions, Alerts [...] PROCEDURE., # 3 tabs, 0 Refill(s), Pharmacy: [facility] #[id number], TAKE 2 TABS PRIOR TO PROCEDURE AND [...] NEBULIZER., # 270 mL, 3 Refill(s), Pharmacy: [facility] #[id number] Start Date: 03/17/15 Status: OrderedFLUoxetine 10 mg oral tablet 10 mg 1 tabs, Oral, Daily, # 30 tabs, 0 Refill(s), Pharmacy: [facility] # [id number], 1 tabs Oral Daily Start Date: 05/21/15 [...] TWICE A DAY, # 120 tabs, eRx: [facility] #[id number],TAKE FOUR TABLETS BY MOUTH TWICE A DAY [...] dose, # 30 Each, 3 Refill(s), Pharmacy: [facility] #[id number], 1 Each Inhalation Daily,Instr:use two inhalations of one capsule for each dose Start Date: 06/04/15 Status: Orderedtacrolimus 1 mg oral capsule See Instructions, 2 IN THE AM AND 1 PM, 0 Refill(s) Start Date: 03/12/15 Status: OrderedToprol-XL 100 mg oral tablet, extended release See Instructions, TAKE ONE TABLET BY MOUTH DAILY, # 30 tabs, 2 Refill(s), Pharmacy: [facility]#[id number] Start Date: 09/03/15 Status: OrderedVitamin D3 5000 UNITS ONE WEEKLY ON SUNDAY, 0 Refill(s) Start Date: 03/12/15 Status: Ordered Results Urinalysis Most recent to oldest [Reference Range]: 1 UA Color Yellow (03/02/15 4:50 PM) UA Appear Cloudy *ABN* (03/02/15 4:50 PM) UA pH [5.0-8.0] 7.0 (03/02/15 4:50 PM) UA Leuk Est [Negative] Pos 2+ *ABN* (03/02/15 4:50 PM) UA Nitrite [Negative] Negative (03/02/15 4:50 PM) UA Protein [Negative] Negative (03/02/15 4:50 PM) UA Glucose [Negative] Negative (03/02/15 4:50 PM) UA Ketones [Negative] Negative (03/02/15 4:50 PM) UA Urobilinogen [<1.0 mg/dL] 1.0 mg/dL (03/02/15 4:50 PM) UA Bili [Negative] Negative (03/02/15 4:50 PM) UA Blood [Negative] Negative (03/02/15 4:50 PM) UA Spec Grav [1.003-1.030] 1.011 (03/02/15 4:50 PM) Type Clean Catch (03/02/15 4:50 PM) UA WBC [0-4] 5-10 *ABN* (03/02/15 4:50 PM) UA RBC [0-4] 0-4 (03/02/15 4:50 PM) Epithelial Cells 10-20 (03/02/15 4:50 PM) UA Hyal Cast [0-3] 4-6 *ABN* (03/02/15 4:50 PM) Microbiology Reports TEST:Urine Culture STATUS:Auth (Verified) BODY SITE: SOURCE:Urine COLLECTED DATE/TIME:03/02/15 4:50 PMUrine CultureNormal urogenital/skin gerry present Immunizations Vaccine Date Refusal Reason influenza virus [...] salpingo-oophorectomy Tonsillectomy Tonsillectomy 1auto-populated from documented surgical nqcn4Aljg kidney nnwsuhfopq0qyqt repeat colonoscopy in 10 years. 5-7-77844myf anemia, vwhclx5wlgl in 2001 right in 2007 Social History Social History Type Response Smoking Status Former smoker; Type: Cigarettes; Tobacco use per day: 1 Pack; Number of years: 30; Total pack years: 301 1Quit in 2001 Assessment and Plan No data available for this section
--- OUTSIDE RECORDS SUMMARY | 2017-08-23 19:10 | External Medical Summary | Referral Summary ---
:1940 Author [facility] Address [address] [place] [address] [place] [address] Care Team Providers Name Role Phone Freedom Tsang Primary Care Physician Encounter VC Date(s): 02/26/15 - 02/26/15 [facility] [place] [phone] [place] Discharge Diagnosis: Hyperlipidemia Discharge Diagnosis: EDEMA Discharge Diagnosis: Back pain Discharge Diagnosis: Depression Discharge Disposition: 01-Home or Self Care Attending Physician: Sybil Reyes MD Admitting Physician: Sybil Reyes MD Vital Signs Most recent to oldest [Reference Range]: 1 Temperature Tympanic [36.6-38.1 degC] 36.8 degC (02/26/15 8:23 AM) Peripheral Pulse Rate [60-100 bpm] 78 bpm (02/26/15 8:23 AM) Respiratory Rate [14-20 br/min] 17 br/min (02/26/15 8:23 AM) Blood Pressure [90-140/60-90 mmHg] 140/60 mmHg (02/26/15 8:23 AM) Problem List Condition Effective Dates Status [...] on dialysis 3x week with left arm lxlewwk0Tpemizt added automatically by system based on initiation of Knowledge Deficit Plan of Wrun9fsrikharctk, demerol also could be the kplwy9b few serious sunburns Allergies, Adverse Reactions, Alerts [...] PROCEDURE., # 3 tabs, 0 Refill(s), Pharmacy: [facility] #[id number], TAKE 2 TABS PRIOR TO PROCEDURE AND [...] NEBULIZER., # 270 mL, 3 Refill(s), Pharmacy: [facility] #[id number] Start Date: 03/17/15 Status: OrderedFLUoxetine 10 mg oral tablet 10 mg 1 tabs, Oral, Daily, # 30 tabs, 0 Refill(s), Pharmacy: [facility] # [id number], 1 tabs Oral Daily Start Date: 05/21/15 [...] TWICE A DAY, # 120 tabs, eRx: [facility] #[id number],TAKE FOUR TABLETS BY MOUTH TWICE A DAY [...] dose, # 30 Each, 3 Refill(s), Pharmacy: [facility] #[id number], 1 Each Inhalation Daily,Instr:use two inhalations of one capsule for each dose Start Date: 06/04/15 Status: Orderedtacrolimus 1 mg oral capsule See Instructions, 2 IN THE AM AND 1 PM, 0 Refill(s) Start Date: 03/12/15 Status: OrderedToprol-XL 100 mg oral tablet, extended release See Instructions, TAKE ONE TABLET BY MOUTH DAILY, # 30 tabs, 2 Refill(s), Pharmacy: [facility]#[id number] Start Date: 09/03/15 Status: OrderedVitamin D3 5000 UNITS ONE WEEKLY ON SUNDAY, 0 Refill(s) Start Date: 03/12/15 Status: Ordered Results Coagulation Most recent to oldest [Reference Range]: 1 2 D-Dimer [0-590 ng{FEU}/mL] 4030 ng{FEU}/mL *HI* (02/26/15 9:45 AM) Chemistry Most recent to oldest [Reference Range]: 1 2 Sodium Lvl [135-144 mEq/L] 142 mEq/L (02/26/15 9:45 AM) Potassium Lvl [3.5-5.2 mEq/L] 4.4 mEq/L (02/26/15 9:45 AM) Chloride [99-111 mEq/L] 102 mEq/L (02/26/15 9:45 AM) CO2 [22-31 mEq/L] 28 mEq/L (02/26/15 9:45 AM) AGAP [3-20] 12 (02/26/15 9:45 AM) BUN [10-20 mg/dL] 27 mg/dL *HI* (02/26/15 9:45 AM) Glucose Lvl [70-99 mg/dL] 126 mg/dL *HI* (02/26/15 9:45 AM) Creatinine Lvl [0.57-1.11 mg/dL] 1.14 mg/dL *HI* (02/26/15 9:45 AM) eGFR [>60 mL/min] 47 mL/min 1 *ABN* (02/26/15 9:45 AM) Calcium Lvl [8.9-10.5 mg/dL] 9.6 mg/dL (02/26/15 9:45 AM) Albumin Lvl [3.4-4.8 gm/dL] 4.0 gm/dL 3.9 gm/dL (02/26/15 9:45 AM) (02/26/15 9:45 AM) Total Protein [6.2-8.1 gm/dL] 5.8 gm/dL 5.8 gm/dL *LOW* *LOW* (02/26/15 9:45 AM) (02/26/15 9:45 AM) Globulin [1.8-4.0 gm/dL] 1.8 gm/dL (02/26/15 9:45 AM) ALT [0-55 U/L] 7 U/L 6 U/L (02/26/15 9:45 AM) (02/26/15 9:45 AM) AST [5-34 U/L] 11 U/L 11 U/L (02/26/15 9:45 AM) (02/26/15 9:45 AM) Alk Phos [40-150 U/L] 97 U/L 97 U/L (02/26/15 9:45 AM) (02/26/15 9:45 AM) Bili Total [0.2-1.2 mg/dL] 0.7 mg/dL 0.7 mg/dL (02/26/15 9:45 AM) (02/26/15 9:45 AM) Bili Direct [0.0-0.5 mg/dL] 0.3 mg/dL (02/26/15 9:45 AM) Bili Indirect [0.0-1.0 mg/dL] 0.4 mg/dL (02/26/15 9:45 AM) BNP [0-99 pg/mL] 505 pg/mL *HI* (02/26/15 9:45 AM) Chol [0-199 mg/dL] 137 mg/dL (02/26/15 9:45 AM) Trig [0-149 mg/dL] 148 mg/dL (02/26/15 9:45 AM) HDL [40-84 mg/dL] 39 mg/dL *LOW* (02/26/15 9:45 AM) LDL [0-130 mg/dL] 68 mg/dL (02/26/15 9:45 AM) VLDL Cholesterol [0-28 mg/dL] 30 mg/dL *HI* (02/26/15 9:45 AM) Cardiac Risk [0.0-5.0] 3.5 (02/26/15 9:45 AM) 1Result Comment: Multiply eGFR results by [...] salpingo-oophorectomy Tonsillectomy Tonsillectomy 1auto-populated from documented surgical nisk2Tayc kidney bkqkurueiv8uyqe repeat colonoscopy in 10 years. 1-9-73714lsd anemia, pozlbf5rmgq in 2001 right in 2007 Social History Social History Type Response Smoking Status Former smoker; Type: Cigarettes; Tobacco use per day: 1 Pack; Number of years: 30; Total pack years: 301 1Quit in 2001 Assessment and Plan Extracted from: Title: Ambulatory Patient Education Author: Sybil Reyes MD Date: 02/26/15 Allergy Edema Edema is an abnormal buildup [...] 07/16/2006 Document Revised: 07/21/2014 Document Reviewed: 05/08/2014 [facility] Patient Information 2015 [employer] [facility]. This information is not intended to replace advice given to you by your health care provider. Make sure you discuss any questions you have with your health care provider. No follow up information was provided. Extracted from: Title: Office Visit Note Author: Sybil Reyes MD Date: 02/26/15 Assessment/Plan Back pain Depression recheck one month EDEMA reduce amlodipine from 10 to 5. Will increase metoprolol for BP. Recheck appt in 2 weeks. Ordered: B-Type Natriuretic Peptide Comprehensive Metabolic Panel D-Dimer Hyperlipidemia Ordered: Hepatic Function Panel Lipid Panel Orders: amLODIPine, 5 mg 1 tabs, Oral, Daily, # 30 tabs, 2 Refill(s), Pharmacy: [facility] #[id number], 1 tabs Oral Daily FLUoxetine, 10 mg 1 tabs, Oral, Daily, # 30 tabs, 2 Refill(s), Pharmacy: [facility] #[id number], 1 tabs Oral Daily metoprolol, 100 mg 1 tabs, Oral, Daily, NOTE DOSE CHANGE, # 30 tabs, 2 Refill (s), Pharmacy: [facility] #[id number]
--- OUTSIDE RECORDS SUMMARY | 2017-08-23 19:11 | External Medical Summary | Referral Summary ---
:1940 Author Organization Via [facility], [facility] Address [address] [place] [address] Care Team Providers Name Role Phone Freedom Tsang Primary Care Physician Encounter VC Date(s): 09/08/15 - 09/08/15 [facility], [place] [address] [place] [address]- [phone] Discharge Disposition: 01-Home or Self Care Attending Physician: Brooke Lebron MD Admitting Physician: Brooke Lebron MD Vital Signs No data available for [...] on dialysis 3x week with left arm uisydkg5Yewfhfy added automatically by system based on initiation of Knowledge Deficit Plan of Inep5jqogreqqips, demerol also could be the qsrgm0g few serious sunburns Allergies, Adverse Reactions, Alerts [...] # 3 tabs, 0 Refill(s), Pharmacy: [facility] #[id number], TAKE 2 TABS PRIOR TO PROCEDURE AND [...] # 270 mL, 3 Refill(s), Pharmacy: [facility] #[id number] Start Date: 03/17/15 Status: OrderedFLUoxetine 10 mg oral tablet 10 mg 1 tabs, Oral, Daily, # 30 tabs, 0 Refill(s), Pharmacy: [facility] # [id number], 1 tabs Oral Daily Start Date: 05/21/15 [...] A DAY, # 120 tabs, eRx: [facility] #[id number],TAKE FOUR TABLETS BY MOUTH TWICE A DAY [...] # 30 Each, 3 Refill(s), Pharmacy: [facility] #[id number], 1 Each Inhalation Daily,Instr:use two inhalations of one capsule for each dose Start Date: 06/04/15 Status: Orderedtacrolimus 1 mg oral capsule See Instructions, 2 IN THE AM AND 1 PM, 0 Refill(s) Start Date: 03/12/15 Status: OrderedToprol-XL 100 mg oral tablet, extended release See Instructions, TAKE ONE TABLET BY MOUTH DAILY, # 30 tabs, 2 Refill(s), Pharmacy: [facility]#[id number] Start Date: 09/03/15 Status: OrderedVitamin D3 5000 [...] salpingo-oophorectomy Tonsillectomy Tonsillectomy 1auto-populated from documented surgical hwut1Uxnd kidney nsitbxichi8iqof repeat colonoscopy in 10 years. 8-6-03358dbq anemia, evmveh6rddq in 2001 right in 2007 Social History Social History Type Response Smoking Status Former smoker; Type: Cigarettes; Tobacco use per day: 1 Pack; Number of years: 30; Total pack years: 301 1Quit in 2001 Assessment and Plan No data available for this section
--- OUTSIDE RECORDS SUMMARY | 2017-08-23 19:11 | External Medical Summary | Referral Summary ---
:1940 Author Organization [facility], [facility] Address [address] [place] [address] Care Team Providers Name Role Phone Freedom Tsang Primary Care Physician Encounter VC Date(s): 08/27/15 - 08/27/15 [facility], [place] [address] [place] [address]- [phone] Discharge Disposition: 01-Home or Self Care Attending Physician: Brooke Lebron MD Admitting Physician: Brooke Lebron MD Referring Physician: Qasim Saxena MD Vital Signs Most recent to oldest [Reference Range]: 1 Peripheral Pulse Rate [60-100 bpm] 87 bpm (08/27/15 8:22 AM) Blood Pressure [90-140/60-90 mmHg] 117/58 mmHg (08/27/15 8:22 AM) Problem List Condition Effective Dates Status [...] on dialysis 3x week with left arm oxxuufh9Xfwnjtq added automatically by system based on initiation of Knowledge Deficit Plan of Muqi9mynghnreexx, demerol also could be the likna5y few serious sunburns Allergies, Adverse Reactions, Alerts [...] PROCEDURE., # 3 tabs, 0 Refill(s), Pharmacy: [facility] #[id number], TAKE 2 TABS PRIOR TO PROCEDURE AND [...] NEBULIZER., # 270 mL, 3 Refill(s), Pharmacy: [facility] #[id number] Start Date: 03/17/15 Status: OrderedFLUoxetine 10 mg oral tablet 10 mg 1 tabs, Oral, Daily, # 30 tabs, 0 Refill(s), Pharmacy: [facility] # [id number], 1 tabs Oral Daily Start Date: 05/21/15 [...] TWICE A DAY, # 120 tabs, eRx: [facility] #[id number],TAKE FOUR TABLETS BY MOUTH TWICE A DAY [...] dose, # 30 Each, 3 Refill(s), Pharmacy: [facility] #[id number], 1 Each Inhalation Daily,Instr:use two inhalations of [...] salpingo-oophorectomy Tonsillectomy Tonsillectomy 1auto-populated from documented surgical gkjy0Kcol kidney fafulffudw9gyld repeat colonoscopy in 10 years. 5-0-29081gfz anemia, xkrmdr8dopl in 2001 right in 2007 Social History Social History Type Response Smoking Status Former smoker; Type: Cigarettes; Tobacco use per day: 1 Pack; Number of years: 30; Total pack years: 301 1Quit in 2001 Assessment and Plan No data available for this section
--- OUTSIDE RECORDS SUMMARY | 2017-08-23 19:11 | External Medical Summary | Continuity of Care Document ---
:1940 Author Organization Via [facility] Allergies There is no data. Medications There is no data. Problems There is no data. Procedures There is no data. Results There is no data. Encounters ACCT No. Visit Discharge Status Pt. Type Provider Facility Loc./Unit Complaint Date/Time [id number] 06/30/2013 06/30/2013 CLS Outpatient 11:24:00 23:59:59
[2017-08-23] MEDS ORDERED: ALBUTEROL/IPRATROPIUM 2.5mg-0.5mg/3ml NEB AEROSOL ONE ×4 (19:15→21:56)
[2017-08-23] MEDS ORDERED: SALINE FLUSH 10ml SYRINGE IVF PRN (19:18)
[2017-08-23] MEDS ORDERED: NS 1,000 ML IV ONE (19:22)
--- NOTE | 2017-08-23 19:24 | Emergency Department Report ---
Asthma HPI - General Chief Complaint: Upper Respiratory Infection Stated Complaint: bad cold,cough Time Seen by Provider: 08/23/17 19:03 Source: patient, family Mode of arrival: ambulatory - History of Present Illness HPI Narrative: 2 day history of cough congestion or difficulty breathing, worsening tonight. Patient came in with significant difficulty breathing, feeling short of breath with chest tightness. Patient has never had heart attack or stroke, but does admit that she has COPD that she does not treat at home very often. Patient does have a Combivent inhaler that she uses when necessary only. - Related Data Home Medications Medication Instructions Recorded Confirmed Hydralazine HCl 100 mg PO TID #0 06/20/15 08/23/17 Metoprolol Succinate 100 mg PO DAILY #0 06/20/15 08/23/17 Mycophenolate Sodium [Myfortic] 180 mg PO Q12H #0 06/20/15 08/23/17 Tacrolimus [Prograf] 1 mg PO Q12H #0 06/20/15 08/23/17 Aspirin [Aspirin EC] 81 mg PO DAILY 08/23/17 08/23/17 Docusate Sodium [Colace] 100 mg PO HS 08/23/17 08/23/17 Famotidine [Pepcid] 20 mg PO HS 08/23/17 08/23/17 Furosemide [Lasix] 40 mg PO BID 08/23/17 08/23/17 Hydrocodone/APAP 7.5/325 [[place] 1 tab PO Q4H PRN 08/23/17 08/23/17 7.5/325] Oxybutynin Chloride 5 mg PO BID 08/23/17 08/23/17 Prednisone 1 tab PO WB 08/23/17 08/23/17 Allergies Allergy/AdvReac Type Severity Reaction Status Date / Time meperidine Allergy Intermediate SEIZURES Verified 08/23/17 19:24 Penicillins Allergy Intermediate RASH Verified 08/23/17 19:24 oxycodone Allergy Mild ITCH Verified 08/23/17 19:24 fluoxetine Allergy Unknown Verified 08/23/17 19:24 iodine Allergy Unknown IV-ROBERTO Verified 08/23/17 19:24 HER FACE AND LIPS Review of Systems All systems: reviewed and negative except as stated [facility] Medical History Polycystic kidney (Chronic Medical) HTN (hypertension), benign (Chronic Medical) COPD Seizures (HX "YEARS AGO") Hypertension, Rheumatic Fever (NOT SURE) COPD PARTIAL THYROIDECTOMY Thyroid Disease (PARTIAL THYROIDECTOMY) Renal Disease (POLYCYSTIC KIDNEY DISEASE-RT KIDNEY TRANSPLANT APR 2011) Surgical History: *Tonsilectomy. *Hysterectomy. *Hip replacement. *Salivary gland removed. *Carpel Tunnel Surgery bilateral wrists. *Trigger Finger bilaterally. *Partial thyroid removal. *Kidney transplant R. *Back surgery - Social History Smoking status: Former smoker Substance use type: does not use Alcohol intake frequency: does not drink Physical Exam - Limitations Limitations: no limitations - General General appearance: alert - Normal Exams: Head:: Normocephalic without trauma Eyes:: Pupils are PERRLA w/ EOMI, No scleral icterus, irritation, or foreign bodies noted ENMT:: No facial trauma, nasal exudates, pharyngeal erythema, or exudates are noted Neck:: Full range of motion, without adenopathy, JVD, bruits or thyromegaly Cardiovascular:: Regular rate and rhythm, without murmur or gallop, Pulses 2+ all extremities, capillary refill, <2 seconds all extremities Abdomen:: Bowel sounds positive, soft, non-tender, non-distended, no hepatosplenomegaly, masses or bruits noted Genitourinary:: Vulva without rashes, or lesions, no exudate or bleeding, noted externally Musculoskeletal:: No tenderness, or deformity noted, good range of motion, all extremities Integumentary:: No rashes, hives, or bruising noted, hair and nails, without abnormality Neurological:: Patient is alert, and oriented, cranial nerves, motor/sensory/ cerebellar, exams w/o gross deficits, to observation Psychiatric:: Patient exhibits, appropriate attention, emotion and affect - ENT ENT exam: Present: mucous membranes dry - Chest Chest inspection: Present: normal inspection, symmetric chest wall rise. Absent : tenderness - Respiratory Respiratory exam: Present: wheezes, accessory muscle use, prolonged expiratory phase. Absent: normal lung sounds bilaterally (rhonchi and wheezes bilaterally with mild respiratory distress and prolonged expiratory phase), respiratory distress, stridor Course Vital Signs Temperature 98.8 F 08/23/17 19:16 Pulse Rate 72 08/23/17 19:16 Respiratory Rate 24 08/23/17 19:16 Blood Pressure 201/83 H 08/23/17 19:16 Pulse Oximetry 97 08/23/17 19:16 Temperature 98.8 F 08/23/17 19:16 Pulse Rate 72 08/23/17 19:16 Respiratory Rate 28 H 08/23/17 19:33 Blood Pressure 201/83 H 08/23/17 19:16 Pulse Oximetry 96 08/23/17 19:33 Dyspnea - MDM Narrative Medical decision making narrative: Patient immediately given 2 DuoNeb's [id number], 1 L normal saline IV fluid bolus CBC - N CMP - N EKG - NSR without ischemia, ectopy, or infarction Troponin - n CXR - chronic changes consistent with COPD only, no focal consolidations are seen Patient feeling much better after initial DuoNeb's, however the patient still has mild wheezes right greater than left, and admits that she still feels slightly tight. Patient given one additional DuoNeb, as well as a new Combivent inhaler and instructed on its use. Patient is to follow-up with her primary doctor tomorrow by phone to have them set up a nebulizer with DuoNeb treatments at home. - Lab Data Result diagrams: 08/23/17 19:40 08/23/17 19:40 Lab Results 08/23/17 08/23/17 Range/Units 19:40 19:40 WBC 5.2 (4.5-11.0) T/MM3 RBC 4.60 (4.00-5.20) M/MM3 Hgb 13.3 (12-16) GM/DL Hct 42.3 (36-46) % MCV 92.0 (80-100) UM3 MCH 28.9 (26-34) UUG MCHC 31.4 (31-37) GM/DL RDW Std Deviation 47.6 (36.9-50.2) FL Plt Count 167 (130-400) T/MM3 MPV 10.5 (9.4-12.4) UM3 Immature Gran % (Auto) 0.0 (0.0-0.5) % Neut % (Auto) 63.9 (33-66) % Lymph % (Auto) 17.1 L (23-45) % [place] % (Auto) 16.9 H (0-9.0) % Eos % (Auto) 1.3 (0-4) % Baso % (Auto) 0.8 (0-2) % Neut # (Auto) 3.3 (1.8-7.7) T/MM3 Lymph # (Auto) 0.9 L (1-4.8) T/MM3 [place] # (Auto) 0.9 H (0-0.8) T/MM3 Eos # (Auto) 0.1 (0-0.5) T/MM3 Baso # (Auto) 0.0 (0-0.2) T/MM3 Abs Immat Gran (auto) 0.00 (0.00-0.03) T/MM3 Turbidity < 20 (0-20) Sodium 141 (134-144) MEQ/L Potassium 4.0 (3.6-5) MEQ/L Chloride 100 (98-107) MEQ/L Carbon Dioxide 31 H (22-30) MEQ/L Anion Gap 10 (5-15) MEQ/L BUN 34.0 H (7-17) MG/DL Creatinine 0.8 (0.7-1.2) MG/DL GFR Calculation 70 BUN/Creatinine Ratio 43 H (6-26) RATIO Glucose 100 (65-110) MG/DL Calculated Osmolality 279 (261-280) MOSM/KG Calcium 9.9 (8.4-10.2) MG/DL Total Bilirubin 1.00 (0.20-1.30) MG/DL Conjugated Bilirubin 0.00 (0.00-0.30) MG/DL Unconjugated Bilirubin 0.60 (0.00-1.1) MG/DL Icterus Index < 2 (0-7) AST 22 (14-36) U/L ALT 31 (9-52) U/L Alkaline Phosphatase 81 (38-126) U/L Troponin I < 0.012 (0-0.12) ng/ml Total Protein 7.5 (6.3-8.2) G/DL Albumin 4.7 (3.5-5.0) G/DL Globulin 2.8 (2.4-3.6) G/DL Albumin/Globulin Ratio 1.7 (1.1-2.2) RATIO Specimen Hemolysis < 15 (0-25) Disposition Clinical Impression: COPD exacerbation, Influenza Disposition: Discharged Home, Self-Care Condition: Improved Instructions: Influenza (ED), COPD (Chronic Obstructive Pulmonary Disease) (ED) Additional Instructions: Use Combivent 4 puffs 4 times daily or DuoNeb treatments 4 times daily and as needed for cough or wheezing Call your doctor's office tomorrow and have them set up a nebulizer with DuoNeb treatments through [employer] for home use For any worsening breathing return to ER or see her doctor immediately Prescriptions: Continue Mycophenolate Sodium [Myfortic] 180 mg PO Q12H #0 Metoprolol Succinate 100 mg PO DAILY #0 Docusate Sodium [Colace] 100 mg PO HS Aspirin [Aspirin EC] 81 mg PO DAILY Furosemide [Lasix] 40 mg PO BID Prednisone 1 tab PO WB Oxybutynin Chloride 5 mg PO BID Tacrolimus [Prograf] 1 mg PO Q12H #0 Hydralazine HCl 100 mg PO TID #0 Hydrocodone/APAP 7.5/325 [Cascade 7.5/325] 1 tab PO Q4H PRN PRN Reason: Pain Famotidine [Pepcid] 20 mg PO HS Referrals: Freedom Tsang MD [Family Provider] - - Seen By: physician
[2017-08-23] MEDS ORDERED: Ipatropium/Albuterol 20/100mcg INHALER (4gm) ORAL INH ONE (21:02)
[2017-08-23] MEDS ORDERED: MethylPREDNISolone SOD SUCC 1,000 MG in NS 250ml 250 ML IV ONE (21:03)
[2017-08-23] MEDS ORDERED: METHYLPREDNISOLONE SOD SUCC 125mg/2ml INJECTION IVP ONE (21:43)
--- NOTE | 2017-08-23 22:26 | History & Physical Report ---
History of Present Illness Date: 08/24/17 Chief complaint: SOA, cough HPI: 77 y/o w/ h/o COPD, PKD s/p right nephrectomy and kidney transplant, Hypothyroidism, HTN, GERD, LE edema and other medical issues presents to ER w/ cc of cough, dyspnea and wheezing. It started 2 days ago as a cough, and she has had some muscle aches and joint aches especially in upper body/extremities. Patient not on any meds for COPD and does not have nebulizer at home. Patient also c/o intermittent chills and sweats and feeling "warm" but no recorded fever. Overall malaise and fatigue and "just not feeling well". Denies CP, sore throat, [place], n/v/d and change in bladder function; decreased appetite and intake ED: had IVFs, DuoNebs x 2, CXR showing signs of COPD but no acute process, IV SoluMedrol 125mg x one and labs which were largely unremarkable - WBC = 5.2; Respiratory panel was pending. O2 Sats 94-96% on RA Patient to be admitted to the Hospitalist service for further evaluation and management. Patient after leaving the ER noted to be + for Influenza A. Review of Systems All systems PM: 10-point ROS was reviewed, no additional remarkable complaints except Past Medical History Clinic Medical History Polycystic kidney (Chronic Medical) HTN (hypertension), benign (Chronic Medical) Hypothyroidism s/p Right Nephrectomy and s/p kidney transplant H/o Rheumatic Fever Sz history - no current treatment GERD LE edema on Lasix Surgical History: *Tonsilectomy. *Hysterectomy. *Hip replacement. *Salivary gland removed. *Carpel Tunnel Surgery bilateral wrists. *Trigger Finger bilaterally. *Partial thyroid removal. *Kidney transplant R. *Back surgery Family History Updates: No specific family history reported other than mother w / PKD and sister w/ DM - Social History Smoking status: Former smoker Medications Home Medications Medication Instructions Recorded Confirmed Type Hydralazine HCl 100 mg PO TID #0 06/20/15 08/23/17 History Metoprolol Succinate 100 mg PO DAILY #0 06/20/15 08/23/17 History Mycophenolate Sodium [Myfortic] 180 mg PO Q12H #0 06/20/15 08/23/17 History Tacrolimus [Prograf] 1 mg PO Q12H #0 06/20/15 08/23/17 History Aspirin [Aspirin EC] 81 mg PO DAILY 08/23/17 08/23/17 History Docusate Sodium [Colace] 100 mg PO HS 08/23/17 08/23/17 History Famotidine [Pepcid] 20 mg PO HS 08/23/17 08/23/17 History Furosemide [Lasix] 40 mg PO BID 08/23/17 08/23/17 History Hydrocodone/APAP 7.5/325 [[place] 1 tab PO Q4H PRN 08/23/17 08/23/17 History 7.5/325] Oxybutynin Chloride 5 mg PO BID 08/23/17 08/23/17 History Prednisone 1 tab PO WB 08/23/17 08/23/17 History Allergies Allergy/AdvReac Type Severity Reaction Status Date / Time meperidine Allergy Intermediate SEIZURES Verified 08/23/17 19:24 Penicillins Allergy Intermediate RASH Verified 08/23/17 19:24 oxycodone Allergy Mild ITCH Verified 08/23/17 19:24 fluoxetine Allergy Unknown Verified 08/23/17 19:24 iodine Allergy Unknown IV-ROBERTO Verified 08/23/17 19:24 HER FACE AND LIPS Exam Vital Signs: Temperature 98.8 F 08/23/17 19:16 Pulse Rate 72 08/23/17 19:16 Respiratory Rate 28 H 08/23/17 22:00 Blood Pressure 201/83 H 08/23/17 19:16 Pulse Oximetry 94 08/23/17 22:00 Telemetry Rhythm: Sinus Rhythm Height/Weight/BMI: Height 1.65 m Weight 78 kg - Constitutional Present: no acute distress, well nourished, well developed - Routine HEENT Exam Head: Present: normocephalic, atraumatic Eye: Present: EOMI, PERRL ENT: Present: mucous membranes dry, nares patent - Routine Neck Exam Present: supple, full ROM. Absent: JVD - Routine Respiratory Exam Present: CTA bilaterally, wheezes (rare, scattered). Absent: accessory muscle use, dyspnea, decreased breath sounds, respiratory distress, crackles - Routine Cardiovascular Exam Present: RRR, S1, S2 - Routine Abdominal Exam Present: soft, normoactive bowel sounds, non distended, non tender - Routine Extremities Exam Absent: cyanosis, clubbing, edema - Routine Neurological Exam Present: alert, oriented X3, CN II-XII intact. Absent: sensory deficit, motor deficit - Routine Psychiatric Exam Present: normal affect, normal thought process, cooperative, good insight Results - Labs CBC & Chem 7: 08/24/17 04:31 08/24/17 04:31 Assessment and Plan Assessment and Plan: A/ 1) Acute Exacerbation of COPD 2) Acute Influenza A viral illness 3) Acute Dehydration 4) PKD s/p Right Nephrectomy and s/p kidney transplant 5) HTN 6) GERD 7) LE edema - no edema noted on exam P/ Admit to Hospitalist service DuoNebs QID Albuterol neb q 2 hours prn Solu-Medrol 125mg IV q 6 hours Respiratory panel pending Regular diet Crm Coordinator consult SCDs Labs in AM IVFs that of NS at 75 cc/hour Resume Home meds Start Tamiflu 75mg po BID - GFR = 70 I discussed the plan of care w/ the patient and patient's family and they verbalized understanding and agreement. DVT Prophylaxis: SCD's GI Prophylaxis: Pepcid Resuscitation Status: Full Code - Physician Narrative Physician: Hector Ruth MD Narrative: Date: 08/24/17 Time: 1000 Have independently interviewed and examined pt. Chart reviewed. Reviewed above not and concur. CC: BAD cold, cough. HPI: 77 y/o WF with multiple medical comorbidities including immunosuppression secondary to renal transplantation presents to ED for evaluation of increasing cough. Symptoms onset 08/21. Stared having increasing cough. Little chest congestion, not mobilizing sputum. Feeling more weak and achy, but not having F/ C. Appetite stable. No n/v. No diarrhea. Chest feeling more sore from cough. Increasing SOA prompted ED visit. Given Neb treatment which helped some. Was about to discharge from ED to home when began to feel more winded. O2 sats decreased. Placed in OBS for further evaluation. PMHx: COPD, HTN, OA, AR, PCKD, Hx right nephrectomy and renal transplantation, Hypothyroidism, Remote Hx seizer (?Demerol). PSxHx: SHUN-BSO, Right hip replacement, Cataract removal, ALL: See SEP. MEDS: see SEP SHx: , lives in [place]. Former smoker. [facility] for PCP. FHx: Father at 53-brain embolism. Sister at 47 on operating table for CABG. ROS: As in HPI. Remainder of 10 point ROS discussed with pt and negative except : Chronic rhinitis-stable. Intermittent left ear pain. EXAM: GEN: [id number] awake alert HEENT: NC/AT PERRLA EOMI MMM Neck: supple, midline. No tracheal deviation. Lungs: decreased breath sounds bilaterally. Faint end expiratory wheeze on forced expiration. No distress on RA. CV: RRR without murmur AB: soft nt/nd +BS EXT: NO c/c/e. SCD in place. NEURO: CN II-XII intact. No focal motor deficits. Psych: awake, alert, appropriate. Thoughts linear. Converses well. SKIN: warm, slightly moist. MS: normal muscle mass and tone in upper/lower ext Bilaterally. Lab: reviewed CXR: reviewed - no infiltrate Assessment Acute Exacerbation of COPD Acute Influenza A viral illness Acute Dehydration PKD s/p Right Nephrectomy and s/p kidney transplant Chronic immunosuppression secondary to kidney transplant HTN GERD LE edema - no edema noted on exam Plan OBS admission Tamiflu to influenza Solu-Medrol Neb Treatments of DuoNeb. Supplemental O2 as needed, weaning as able. Continue home meds. Acapella to help loosen secretions. Hospital Course Summary Disclaimer: The visit summary below is not to be considered part of the above Progress Note. Hospital Course: 08/23/17 Admit OBS to Hospitalist service Influenza type A positive - start Tamiflu 75mg po BID - GFR = 70 DuoNeb QID with Albuterol neb q 2 hours prn Solu-Medrol 125mg IV q 6 hours IVFs that of NS at 75 cc/hour Regular diet SCDs Labs in AM Resume Home meds
[2017-08-23] MEDS ORDERED: ACETAMINOPHEN 325 MG TABLET PO PRN (22:53)
[2017-08-23] MEDS ORDERED: ALBUTEROL 2.5mg/3ml (0.083%) NEB AEROSOL PRN (22:53)
[2017-08-23] MEDS ORDERED: NS 1,000 ML IV SCH (22:53)
[2017-08-23] MEDS ORDERED: HYDROCODONE/APAP 7.5 MG/325 MG TABLET PO PRN (22:53)
[2017-08-23] MEDS ORDERED: ONDANSETRON 4 MG/2 ML INJECTION IVP PRN (22:53)
[2017-08-23 23:47] VITALS: BMI 29.3
[2017-08-24] MEDS: TACROLIMUS 1 MG PO SCH ×2 (00:39→10:05)
[2017-08-24] MEDS: MYCOPHENOLATE SODIUM 180 MG PO SCH ×2 (00:39→10:05)
[2017-08-24] MEDS: METHYLPREDNISOLONE SOD SUCC 125mg/2ml INJECTION IVP SCH ×2 (02:24→10:10)
--- NOTE | 2017-08-24 07:59 | XRay Report ---
Indication: cough, dyspnea Procedure: XR chest 2V: Encounter: Initial Comparison: 06/07/2016 Technique: PA and lateral radiographs of the chest were obtained. Findings: Lungs and airways: Mildly increased lung volumes suggesting COPD, with chronic appearing markings, however no new/focal airspace consolidation. Normal pulmonary vasculature. Pleura: No pleural effusion or pneumothorax. Heart and mediastinum: Mild cardiomegaly. Aortic atherosclerosis. Osseous structures and soft tissues: No acute osseous abnormality is seen. Partially visualized postoperative changes of lumbar fusion. Levoconvex scoliosis of the lower thoracic spine. Impression: No acute cardiopulmonary process. .
[2017-08-24 08:17] VITALS: BP 168/82; PULSE 70; TEMP 96.7
[2017-08-24] MEDS ORDERED: FUROSEMIDE 40 MG PO SCH (09:00)
[2017-08-24] MEDS ORDERED: HYDRALAZINE 25 MG PO SCH (09:00)
[2017-08-24] MEDS: ALBUTEROL/IPRATROPIUM 2.5mg-0.5mg/3ml NEB AEROSOL SCH ×2 (09:20→12:50)
[2017-08-24 09:32] VITALS: RESP 16; O2SAT 94
[2017-08-24] MEDS: ASPIRIN *EC* 81 MG TAB - PT OWN PO SCH ×2 (09:44→10:16)
[2017-08-24] MEDS: METOPROLOL SUCCINATE 100 MG PO SCH ×2 (10:03→10:16)
[2017-08-24] MEDS ORDERED: MYCOPHENOLATE SODIUM 180 MG PO SCH (10:12)
--- NOTE | 2017-08-24 11:40 | Progress Note ---
- Date 08/24/17 Subjective: F/U: COPD exacerbation, Influenza type A Breathing much better this am-less SOA and congested. Less cough. Notes note pain to right shoulder, worse with movements-sore as I massage the area (tight muscle). No nausea or ab pain. Ambulating well. Feels ready to go home. Objective Vital signs: Temperature 96.7 F L 08/24/17 08:14 Pulse Rate 70 08/24/17 08:14 Respiratory Rate 16 08/24/17 09:20 Blood Pressure 168/82 H 08/24/17 08:14 Pulse Oximetry 94 08/24/17 09:20 Height/Weight/BMI: Height 1.65 m Weight 80 kg Body Mass Index 29.3 - Constitutional Present: well nourished, well developed, average body habitus, cooperative - Routine HEENT Exam Head: Present: normocephalic, atraumatic Eye: Present: EOMI, PERRL ENT: Present: mucous membranes moist - Routine Respiratory Exam Present: decreased breath sounds. Absent: rales, respiratory distress, rhonchi - Routine Cardiovascular Exam Present: RRR, no murmur - Routine Abdominal Exam Present: soft, normoactive bowel sounds, non distended, non tender - Routine Extremities Exam Present: no edema, pulses intact. Absent: cyanosis, clubbing - Routine Musculoskeletal Exam Musculoskeletal: Present: no clubbing or cyanosis - Routine Skin Exam Present: dry, warm - Routine Neurological Exam Present: alert, oriented X3, CN II-XII intact, moving all extremities, vision grossly intact, hearing grossly intact, normal speech. Absent: motor deficit, altered mental status - Routine Psychiatric Exam Present: normal affect, normal thought process, cooperative, good insight, good judgment Results - Labs CBC & Chem 7: 08/24/17 04:31 08/24/17 04:31 Assessment and Plan (1) COPD exacerbation Current visit: Yes Status: Acute (2) Influenza Current visit: Yes Status: Acute Assessment and Plan: Assessment Acute Exacerbation of COPD Acute Influenza A viral illness Acute Dehydration PKD s/p Right Nephrectomy and s/p kidney transplant Chronic immunosuppression secondary to kidney transplant HTN GERD Left musculoskeletal pain/spasm LE edema - no edema noted on exam Plan Respiratory status much improved. Breathing easier and not needing oxygen. Will discharge to home in stable condition - patient feels ready for discharge. Will continue with Tamiflu in outpatient setting. Prednisone 20mg daily for 5 days, then return to home dose. Acapella 4 times a day for 1 week to help decrease secretions, then as needed. Follow up with PCP in 1 week. See orders for details. Case discussed with nursing and CM. Time spent with patient's care and discharge greater than 30 minutes. DVT Prophylaxis: SCD's Resuscitation Status: Full Code - Physician Narrative Physician: Hector Ruth MD Narrative: Date: 08/24/17 Time: 1136 Hospital Course Summary Disclaimer: The visit summary below is not to be considered part of the above Progress Note. Hospital Course: 08/23/17 Admit OBS to Hospitalist service Influenza type A positive - start Tamiflu 75mg po BID - GFR = 70 DuoNeb QID with Albuterol neb q 2 hours prn Solu-Medrol 125mg IV q 6 hours IVFs that of NS at 75 cc/hour Regular diet SCDs for DVT prevention. Labs in AM Resume Home meds 08/24/17 Respiratory status much improved. Breathing easier and not needing oxygen. Will discharge to home in stable condition - patient feels ready for discharge. Will continue with Tamiflu in outpatient setting. Prednisone 20mg daily for 5 days, then return to home dose. Acapella 4 times a day for 1 week to help decrease secretions, then as needed. Follow up with PCP in 1 week. See orders for details.
--- NOTE | 2017-08-24 14:18 | Discharge Summary ---
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 HTN GERD Left musculoskeletal pain/spasm Hx LE edema - no edema noted on exam - Laboratory Labs: Admit Lab 08/23/17 19:40 WBC 5.2 Hgb 13.3 Hct 42.3 MCV 92.0 Plt Count 167 Neut % (Auto) 63.9 Lymph % (Auto) 17.1 L [place] % (Auto) 16.9 H Eos % (Auto) 1.3 Baso % (Auto) 0.8 Admit Lab 08/23/17 19:40 Sodium 141 Potassium 4.0 Chloride 100 Carbon Dioxide 31 H Anion Gap 10 BUN 34.0 H Creatinine 0.8 GFR Calculation 70 BUN/Creatinine Ratio 43 H Glucose 100 Calculated Osmolality 279 Calcium 9.9 Total Bilirubin 1.00 AST 22 ALT 31 Alkaline Phosphatase 81 Troponin I < 0.012 Total Protein 7.5 Albumin 4.7 Globulin 2.8 Albumin/Globulin Ratio 1.7 Admit Lab 08/23/17 22:19 Influenza A (H3) PCR Detected A* 08/24/17 04:31 08/24/17 04:31 - Radiology Radiology: Date of Exam: 08/23/17 Procedure: XR chest 2V Findings: Lungs and airways: Mildly increased lung volumes suggesting COPD, with chronic appearing markings, however no new/focal airspace consolidation. Normal pulmonary vasculature. Pleura: No pleural effusion or pneumothorax. Heart and mediastinum: Mild cardiomegaly. Aortic atherosclerosis. Osseous structures and soft tissues: No acute osseous abnormality is seen. Partially visualized postoperative changes of lumbar fusion. Levoconvex scoliosis of the lower thoracic spine. Impression: No acute cardiopulmonary process. History of Present Illness HPI: 77 y/o w/ h/o COPD, PKD s/p right nephrectomy and kidney transplant, Hypothyroidism, HTN, GERD, LE edema and other medical issues presents to ER w/ cc of cough, dyspnea and wheezing. It started 2 days ago as a cough, and she has had some muscle aches and joint aches especially in upper body/extremities. Patient not on any meds for COPD and does not have nebulizer at home. Patient also c/o intermittent chills and sweats and feeling "warm" but no recorded fever. Overall malaise and fatigue and "just not feeling well". Denies CP, sore throat, [place], n/v/d and change in bladder function; decreased appetite and intake ED: had IVFs, DuoNebs x 2, CXR showing signs of COPD but no acute process, IV SoluMedrol 125mg x one and labs which were largely unremarkable - WBC = 5.2; Respiratory panel was pending. O2 Sats 94-96% on RA Patient to be admitted to the Hospitalist service for further evaluation and management. Patient after leaving the ER noted to be + for Influenza A. For complete details of the H&P refer to that document. Objective Vital signs: Temperature 96.7 F L 08/24/17 08:14 Pulse Rate 70 08/24/17 08:14 Respiratory Rate 16 08/24/17 12:50 Blood Pressure 168/82 H 08/24/17 08:14 Pulse Oximetry 94 08/24/17 12:50 Height/Weight/BMI: Height 1.65 m Weight 80 kg Body Mass Index 29.3 Hospital Course This is a general summary of the patient's hospital course. For more details refer to the complete medical record. Hospital course: 08/23/17 Admit OBS to Hospitalist service Influenza type A positive - start Tamiflu 75mg po BID - GFR = 70 DuoNeb QID with Albuterol neb q 2 hours prn Solu-Medrol 125mg IV q 6 hours IVFs that of NS at 75 cc/hour Regular diet SCDs for DVT prevention. Labs in AM Resume Home meds 08/24/17 Respiratory status much improved. Breathing easier and not needing oxygen. Will discharge to home in stable condition - patient feels ready for discharge. Will continue with Tamiflu in outpatient setting. Prednisone 20mg daily for 5 days, then return to home dose. Acapella 4 times a day for 1 week to help decrease secretions, then as needed. Follow up with PCP in 1 week. See orders for details. Time spent with patient: discharge greater than 30 minutes Resuscitation Status: Full Code Discharge Plan - Discharge Disposition Discharge Date: 01/26/18 Disposition: 01 Discharged Home, Self-Care *Condition: Improved Reason For Visit (Visit label in EMR): COPD exacerbation,dehydration,BECK - Discharge Medications *Discharge Medications: New predniSONE [Prednisone] 20 mg PO DAILY #5 tab Oseltamivir Cap [Tamiflu] 75 mg PO BID #9 cap Continue Mycophenolate Sodium [Myfortic] 180 mg PO Q12H #0 Metoprolol Succinate 100 mg PO DAILY #0 Docusate Sodium [Colace] 100 mg PO HS Aspirin [Aspirin EC] 81 mg PO DAILY Furosemide [Lasix] 40 mg PO BID Prednisone 1 tab PO WB Oxybutynin Chloride 5 mg PO BID Tacrolimus [Prograf] 1 mg PO Q12H #0 Hydralazine HCl 100 mg PO TID #0 Hydrocodone/APAP 7.5/325 [[place] 7.5/325] 1 tab PO Q4H PRN PRN Reason: Pain Famotidine [Pepcid] 20 mg PO HS - Discharge Packet/Instructions *Diet: Regular *Activity: As tolerated *Pain Management/Treatment: Continue prior home pain medications *Wound Care: N/A Additional Instructions: Use Acapella 4 times a day for 1 week to help decrease congestion; then as needed for congestion. May use heat/ice for shoulder pain/ spasm. Asperecreme may be helpful. Use prednisone 20mg daily for 5 days, then may return to prior home dose. Use Combivent MDI 2 puffs 4 times a day as needed. *Expected Signs/Symptoms: Improvement of breathing. *Notify Physician if: Temp >100.4. Increased difficulty breathing. *During Business Hours Contact: Dr Tsang *After Business Hours Contact: Dr Tsang *Pending Lab/Results: No Pending Lab - Referrals/Follow Up *Referrals/Follow Up: Freedom Tsang MD [Family Provider] - 1 Week (Hopsital follow up for influenza type A PATIENT WILL CALL FOR APPOINTMENT. ) - Patient Handouts Patient Handouts: Influenza (DC), COPD (Chronic Obstructive Pulmonary Disease) (GEN) - Dismissal Complete Discharge Instructions are:: Complete Physician Narrative - Narrative Physician: Hector Ruth MD Attestation Narrative: Date: 08/24/17 Time: 1343 I have independently interviewed and examined patient prior to discharge. See my progress note from today for details. Medically stable for discharge to home.
[2017-08-24] MEDS ORDERED: HYDRALAZINE 50 MG PO SCH (15:00)
[2017-08-24] MEDS ORDERED: ASPIRIN *EC* 81 MG TABLET PO SCH (21:00)
[2017-08-24] MEDS ORDERED: DOCUSATE SODIUM 100 MG CAP - PT OWN PO SCH (21:00)
[2017-08-24] MEDS ORDERED: FAMOTIDINE 20 MG PO SCH (21:00)
== END 2017-08-24 13:23 | disposition home or self-care (01) ==
LOC: MED 19:02 → ED 19:02 → MED 23:22
PROVIDERS: ADMIT Internal Medicine; ATTEND Hospitalist